=== PATIENT | male | born 1940 | race Hispanic/Latino ===

== ENCOUNTER 2016-07-29 13:14 | Day surgery (SDC) | payer MEDICARE, OTHER, BC ==
[2016-07-28 07:59] VITALS: BMI 22.8
[2016-07-29 14:41] VITALS: RESP 20
[2016-07-29] MEDS ORDERED: Propofol 10 mg/ml Inj (20 ML) ONE (16:19)
[2016-07-29] MEDS ORDERED: Oxycodone/Acetaminophen 5/325 mg Tab PO PRN (16:25)
[2016-07-29] MEDS ORDERED: cefTRIAXone (Rocephin) 1 gm Inj ONE (16:27)
[2016-07-29] MEDS ORDERED: HYDROmorphone 0.5 mg/0.5 ml ISec IVP PRN (16:44)
[2016-07-29] MEDS ORDERED: Lactated Ringer's 1,000 ML IV SCH (16:44)
[2016-07-29] MEDS ORDERED: Gentamicin 80mg/50ml NS 80 MG/50 ML BAG IVPB SCH (16:45)
[2016-07-29] MEDS ORDERED: Gentamicin 80mg/50ml NS 80 MG/50 ML BAG IVPB ONE (16:58)
[2016-07-29] MEDS ORDERED: Gentamicin IV 80mg/50ml NS(PREMIX) IVPB ONE (17:01)
[2016-07-29 17:34] VITALS: BP 127/59; PULSE 72; TEMP 97.9; O2SAT 96
--- NOTE | 2016-08-02 10:43 | OP ---
PROCEDURE DATE: 07/29/2016 PREOPERATIVE DIAGNOSES: Rising PSA, history of prostate cancer. POSTOPERATIVE DIAGNOSES: Rising PSA, history of prostate cancer. PROCEDURE: An ultrasound-guided prostate biopsy. SURGEON: Neville Garcia MD COMPLICATIONS: There were none. SPECIMEN SENT: Prostate cores. FINDINGS: There are no specific areas of concern. In fact, the prostate by rectal exam is soft, ama zingly soft, and smaller than previous. On ultrasound, there are no specific abnormalities. BLOOD LOSS: Less than 10 mL. INDICATIONS: See the history and physical for further details. A very pleasant gentleman with a his tory of prostate cancer with rising PSA, here for the above. We discussed options, risks, benefits, treatment alternatives. I also discussed with the patient various options. See many chart notes as well, including second opinion and other options. DESCRIPTION OF PROCEDURE: After obtaining informed consent, the patient placed on the table, routine monitoring devices placed, timeouts were called to confirm the patient and positioning. The patient was in a decubitus position. Probe inserted via the rectum. We took pictures, transvers e and longitudinal. The prostate is extremely small actually and there are no specific nodules. A rectal exam is performed with the sleeping and then the ultrasound is again very unremarkable. We now began our random biopsies, sextant quadrant, left base, left mid, left apex. It is not quite random. I did just multiple, multiple specimens. Left base, left mid, left apex, right base, right mid, right apex. We did about a total of 12 cores plus in each quadrant. Postbiopsy rectal exam was within normal limits. I do want to mention that the patient had received antibiotic prophylaxis. We will see what the final pathology shows and then we will discuss options regarding this. Neville Garcia MD cc: [id number] TT: 08/02/2016 10:03:57 en 08/02/2016 09:42:00
--- NOTE | 2016-08-18 12:32 | OP ---
PROCEDURE DATE: 07/29/2016 PREOPERATIVE DIAGNOSES: Elevated PSA, rise in PSA, untreated prostate cancer. He is on observation status. POSTOPERATIVE DIAGNOSES: Elevated PSA, rise in PSA, untreated prostate cancer. He is on observation status. PROCEDURE: ____ prostate biopsy. SURGEON: Dr. Garcia. COMPLICATIONS: There were no complications. ____ DESCRIPTION OF PROCEDURE: ____ a very pleasant gentleman who is ____ who has chosen his course of t reatment to be observation and no intervention. To my knowledge ____ . I do want to mention ____ . ____ . Neville Garcia MD cc: [id number] TT: 08/18/2016 10:33:02 rn
--- NOTE | 2016-08-18 12:32 | HP ---
UROLOGY ADMISSION REASON FOR ADMISSION: ____. A very pleasant gentleman I know well ____ here today on an observation protocol because ____, to rul e out ____ disease. The patient had no gross hematuria currently. ____ ultrasound of prostate. ____. MEDICATIONS: Included ____. ____ discharge. I mention now that he has a normal ____. DIAGNOSES: Elevated prostate-specific antigen, ____. ____. No further plans will follow ____, but again my recommendation ____. My recommendation is to be cons idered ____ possible intervention in some form. But so far, the patient ____. ADDENDUM: Subsequently, the patient tolerated ____ well and without complication. Neville Garcia MD cc: [id number] TT: 08/18/2016 10:50:03 jn
== END 2016-07-29 18:10 | disposition home or self-care (01) ==
LOC: SDS 13:14
PROVIDERS: ATTEND Urology
DX: C61 Malignant neoplasm of prostate (principal)
CPT/HCPCS: 55700; 76872; 88305; J0696; J1170; J1580; J2405; J2704; J3010; J7120 ×2

== ENCOUNTER 2017-07-20 06:40 | Day surgery (SDC) | payer MEDICARE, OTHER ==
[2016-07-28 07:59] VITALS: BMI 22.8
[2017-07-20] MEDS ORDERED: Lidocaine 2% Jelly (Uro-Jet) ONE (09:07)
[2017-07-20] MEDS ORDERED: cefTRIAXone (Rocephin) 1 gm Inj ONE (09:07)
[2017-07-20] MEDS ORDERED: Gentamicin 80 mg/2mL Inj. ONE ×2 (09:07→11:54)
[2017-07-20] MEDS ORDERED: Propofol 10 mg/ml Inj (20 ML) ONE (09:21)
[2017-07-20] MEDS ORDERED: Lactated Ringer's 1,000 ML IV SCH (09:45)
[2017-07-20] MEDS ORDERED: Oxycodone/Acetaminophen 5/325 mg Tab PO PRN (09:49)
[2017-07-20 10:48] VITALS: RESP 20; TEMP 98.2
[2017-07-20 12:13] VITALS: BP 161/79; PULSE 68; O2SAT 97
--- NOTE | 2017-09-08 13:43 | PN ---
DATE: 09/08/2017 IMMEDIATE POSTOP NOTE SUBJECTIVE: See the history and physical and operative note. Mr. Irizarry is now status post prostate biopsy. He is doing well. He is in the recovery room. Vital signs are within normal limits. The patient is resting comfortably. DIAGNOSES: Elevated prostate-specific antigen, prostate cancer. The plan is for discharge home on antibiotic prophylaxis. Neville Garcia MD
--- NOTE | 2017-09-09 00:07 | HP ---
UROLOGY ADMISSION HISTORY AND PHYSICAL REASON FOR ADMISSION: Elevated PSA, prostate cancer. HISTORY OF PRESENT ILLNESS: Mr. Irizarry is a very pleasant 77-year-old gentleman who has prostate cancer. He is on active surveillance (this is despite my recommendations that he actually be treated for his prostate cancer. Today, he is here for his surveillance biopsy. PSA is rising. He has no change in urinary symptoms and he has been otherwise stable. PAST MEDICAL AND SURGICAL HISTORY: Patient of Dr. Fitzgerald. No other changes. REVIEW OF SYSTEMS: As listed above. No weight loss, chest pain, or shortness of breath. No constitutional complaints. MEDICATIONS: See the chart. ALLERGIES: REVIEWED. PHYSICAL EXAMINATION: GENERAL: A well-nourished male, in no apparent distress. VITAL SIGNS: Within normal limits. LUNGS: Clear. HEART: S1, S2. ABDOMEN: Soft. Nontender. No flank masses appreciated. GENITOURINARY: Normal phallus without discharge. No testicular masses. RECTAL: A 30-g prostate, soft and smooth. No real specific lesions. No real changes since last year. LABORATORY DATA: See the chart. DIAGNOSIS: Elevated PSA and increasingly rising PSA and prostate cancer that is treated. He is on active surveillance. PLAN: The plan as follows; 1. Do an ultrasound of the prostate. 2. An ultrasound-guided prostate biopsy and then further plans will follow. 3. Antibiotic prophylaxis of course. Further plans will follow. Neville Garcia MD
--- NOTE | 2017-09-09 06:28 | OP ---
PROCEDURE DATE: 07/20/2017 UROLOGY OPERATIVE REPORT PREOPERATIVE DIAGNOSES: Elevated prostate-specific antigen, known prostate cancer. POSTOPERATIVE DIAGNOSES: Elevated prostate-specific antigen, known prostate cancer. The question is whether there is any update . PROCEDURE: Transrectal ultrasound of the prostate and ultrasound-guided prostate biopsy. SURGEON: Neville Garcia MD. SPECIMEN SENT DOWN: Prostate cores antibiotic prophylaxis is used. COMPLICATIONS: None. ESTIMATED BLOOD LOSS: Less than 10 mL. FINDINGS: No specific abnormalities appreciated. INDICATIONS: See history and physical for further details. A very pleasant gentleman on active surveillance. He is here for his annual prostate biopsy. DESCRIPTION OF PROCEDURE: After obtaining informed consent, the patient was placed on the table, routine monitor was placed, time-out was called to confirm the patient, positioning, and antibiotics prophylaxis used. The patient was placed in a decubitus position. Probe inserted via the rectum and ultrasound of the prostate was performed. No specific abnormalities appreciated. No hypoechoic lesions. The post-biopsy rectal exam was within normal limits. We did random biopsies and resection of left base, left mid, left apex, right base, right mid, right apex; a total of 12 cores were sent standard biopsy protocol. Post-biopsy rectal exam was within normal limits. Patient tolerated without complications. Neville Garcia MD
== END 2017-07-20 12:25 | disposition home or self-care (01) ==
LOC: SDS 06:40
PROVIDERS: ATTEND Urology
DX: C61 Malignant neoplasm of prostate (principal)
CPT/HCPCS: 55706; 88305; J0696; J2001; J2704; J3010; J7120 ×2

== ENCOUNTER 2017-12-20 06:09 | Inpatient (IN) | payer MEDICARE, OTHER ==
[2016-07-28 07:59] VITALS: BMI 22.8
[2017-12-20] MEDS ORDERED: Lidocaine PF 2% (5 ml) Inj (For Cardiac Arrhy) ONE (07:04)
[2017-12-20] MEDS ORDERED: Heparin 2,000 ML IV ONE (07:05)
[2017-12-20] MEDS ORDERED: Iodixanol 320 MG/ML 200 ML BOTTLE IV ONE (07:05)
[2017-12-20] MEDS ORDERED: Nitroglycerin 50mg in D5W 50 MG/250 ML BOTTLE IV ONE (07:05)
[2017-12-20] MEDS ORDERED: Iodixanol 320 MG/ML 100 ML BOTTLE IV ONE ×3 (07:05→10:30)
[2017-12-20] MEDS ORDERED: Etomidate 20 mg/10ml Inj IV ONE ×2 (08:40→10:31)
[2017-12-20] MEDS ORDERED: ePHEDrine 50 mg/ml Inj ONE (08:40)
[2017-12-20] MEDS ORDERED: Phenylephrine 10 mg/ml Inj ONE (08:40)
[2017-12-20] MEDS ORDERED: Rocuronium 10 mg/ml (5 ml) ONE (08:41)
[2017-12-20] MEDS ORDERED: Midazolam 2 MG/2 ML VIAL ONE ×3 (08:41→11:09)
[2017-12-20] MEDS ORDERED: Propofol 10 mg/ml Inj (20 ML) ONE (10:49)
[2017-12-20] MEDS ORDERED: Sodium Chloride 0.9% 1,000 ML IV SCH ×2 (11:15→15:15)
[2017-12-20] MEDS ORDERED: Morphine 4 mg/ml ISec ONE (11:30)
[2017-12-20] MEDS ORDERED: Morphine 2 mg/ml ISec IVP STA (11:32)
[2017-12-20] MEDS ORDERED: HYDROmorphone 0.5 mg/0.5 ml ISec ONE (11:52)
[2017-12-20] MEDS ORDERED: HYDROmorphone 0.5 mg/0.5 ml ISec IVP STA (11:52)
--- NOTE | 2017-12-20 15:30 | CP.PCM.CON ---
History of Present Illness - History of Present Illness History of Present Illness: MICU Consult Note 77yo male with PMhx of AAA, HTN, hx smoking, HLD, presented to the MICU after endo-vascular procedure of AAA by IR today. Pt tolerated the procedure well. Currently afebrile, BP stable, SBP 125, comfortable in NAD, doing well. Complaining of mild pain in the groin. PMhx as above PSHx as above Meds as per EMR Fhx NC Social smokes 4-5 cigs/day, occasional etoh, denies drug use Review of Systems - Review of Systems Review of Systems: as per HPI Past Patient History - CARDIAC Hx Pacemaker: No - NEUROLOGICAL Hx Paralysis: No - HEMATOLOGICAL/ONCOLOGICAL Hx Blood Transfusions: No - MUSCULOSKELETAL/RHEUMATOLOGICAL Hx Musculoskeletal Disorders: No - PSYCHIATRIC Hx Emotional Abuse: No Hx Physical Abuse: No Hx Substance Use: No - SURGICAL HISTORY Hx Surgeries: Yes - ANESTHESIA Hx Anesthesia Reactions: No Hx Malignant Hyperthermia: No Meds Allergies/Adverse Reactions: Allergies Allergy/AdvReac Type Severity Reaction Status Date / Time No Known Allergies Allergy Verified 07/28/16 07:59 - Medications Medications: Current Medications Sodium Chloride (Sodium Chloride 0.9%) 1,000 mls @ 60 mls/hr IV .[id number] [facility] Morphine Sulfate (Morphine) 2 mg IVP Q4H PRN PRN Reason: Pain, moderate (4-7) Physical Exam - Constitutional Appears: Non-toxic, No Acute Distress - Head Exam Head Exam: NORMAL INSPECTION - Eye Exam Eye Exam: Normal appearance - ENT Exam ENT Exam: Mucous Membranes Moist - Neck Exam Neck exam: Positive for: Full Rom - Respiratory Exam Respiratory Exam: Clear to Auscultation Bilateral, NORMAL BREATHING PATTERN - Cardiovascular Exam Cardiovascular Exam: REGULAR RHYTHM, +S1, +S2 - GI/Abdominal Exam GI & Abdominal Exam: Normal Bowel Sounds, Soft - Extremities Exam Extremities exam: Positive for: normal inspection - Neurological Exam Neurological exam: Alert, Oriented x3 - Psychiatric Exam Psychiatric exam: Normal Affect - Skin Skin Exam: Normal Color, Warm Results - Vital Signs Recent Vital Signs: Last Vital Signs Temp 98.4 F 12/20/17 14:10 Pulse 75 12/20/17 15:05 Resp 9 L 12/20/17 15:05 BP 125/42 L 12/20/17 15:00 Pulse Ox 94 L 12/20/17 06:45 - Labs Labs: Laboratory Results - last 24 hr 12/20/17 06:35 Blood Type O NEGATIVE Antibody Screen Negative BBK History Checked Patient has bt Assessment & Plan - Assessment and Plan (Free Text) Assessment: 77yo male s/p endo-vascular procedure of AAA, and arterial-occlusive disease by IR AAA s/p endovascular procedure by IR HTN HLD Hx smoking - cont with supp o2 as needed - NO ID issues - IVF hydration - resume diet - BP control - check labs, CBC, CMP, INR - FS control - Pain control - monitor groin site - GI ppx - DVT ppx - monitor in MICU
[2017-12-20] MEDS ORDERED: Albuterol-Ipratrop 3 mg / 0.5 (3 ml) UD IH PRN (15:33)
[2017-12-20] MEDS ORDERED: Pneumococcal 23-Valent Vaccine IM ONE (16:24)
[2017-12-20] MEDS: Morphine 2 mg/ml ISec IVP PRN ×2 (17:04→21:19)
--- NOTE | 2017-12-20 20:26 | VASCULAR ---
PROCEDURE: 1. AAA bifurcated stent graft repair 2. Kissing common iliac artery origin angioplasty 3. Right external iliac artery angioplasty and stent placement HISTORY: 4.5 cm AAA. Severe lifestyle-limiting bilateral claudication PHYSICIAN(S): Seamus Nichols MD. Sea Arreola MD TECHNIQUE: he relative risks and indications for the procedure were explained to the patient and informed written consent obtained. The patient was placed supine on the arteriography table and the abdomen and groins prepped and draped in the usual sterile fashion. Conscious sedation and monitoring were provided by the anesthesia department The common femoral arteries bilaterally were punctured under ultrasound guidance a micropuncture set. Bilateral 7 Yoruba 25 centimeter sheath was placed. The severe occlusive disease at the aortic bifurcation was crossed with angled glide wires and catheters. Support wire for placed the thoracic aorta. The aortic bifurcation and common iliac arteries were dilated with kissing 8 mm balloons. Two perclose devices were pre deployed at the left groin puncture site. A 7 Yoruba 25 cm sheath was placed on the right. The 17 Fr. sheath placed over a support guidewire. The 28-80/16-40 [employer] bifurcated main body was placed on the support wire. The sure pass wire was advanced through the left sheath and snared with a 30 mm vascular snare via the right groin. The main body was advanced in the abdominal aorta. The limbs of the graft were aligned with fluoroscopy and the entire system pulled down to the aortic bifurcation. The 0.014 guidewire was advanced through the sure pass wire and contralateral limb. The main body was deployed at the bifurcation. The delivery system was advanced to the renal arteries. The renal arteries were carefully localized with contrast via a flush catheter from the right groin. The 34-100 aortic extension was deployed just below the renal arteries. The right iliac limb was dilated with a 10 mm balloon expandable stent. On the right, proximal to mid right external iliac artery was dilated with 10 x 80 self expanding stent. Completion angiograms were obtained. There is no evidence of endoleak. The renal arteries are patent. The iliac arteries are patent bilaterally. Hemostasis was obtained bilaterally with the Perclose devices. The patient tolerated the procedure well. IMPRESSION: 1) [employer] bifurcated AAA stent graft repair as described above. 2. Kissing common iliac artery balloon angioplasty. 3. Right external iliac artery angioplasty and stent placement.
[2017-12-20 20:54] LABS: HEMOGLOBIN 10.5 g/dL (14.0-18.0); MEAN CELL VOLUME 102.7 fl (80.0-105.0); MEAN CORPUSCULAR HEMOGLOBIN 35.5 pg (25.0-35.0); MEAN CORPUSCULAR HGB CONC 34.5 g/dl (31.0-37.0); MEAN PLATELET VOLUME 8.6 fl (7.0-11.0); RBC 2.96 10^6/uL (3.5-6.1); RED CELL DISTRIBUTION WIDTH 15.9 % (11.5-14.5); WHITE BLOOD COUNT 6.4 10^3/ul (4.5-11.0)
[2017-12-20 21:11] LABS: BLOOD UREA NITROGEN 11 mg/dL (7-21); CALCIUM 8.2 mg/dL (8.4-10.5); GFR NON-AFRICAN AMERICAN > 60
[2017-12-21] MEDS: Morphine 2 mg/ml ISec IVP PRN ×2 (00:51→05:30)
--- NOTE | 2017-12-21 01:55 | HP ---
HISTORY OF PRESENT ILLNESS: I was called through the Intensive Care Unit to admit him on my service. He just had a AAA repair with Dr. Seamus Nichols. He is now in the Intensive Care Unit. He is very upset about the Lin catheter. I will see if I get that removed. He is a 77-year-old white male who was sent to Dr. Seamus Nichols with increase in size of the AAA noted on testing by his primary care doctor, Dr. Uribe. PAST MEDICAL HISTORY: He has a past medical history of high cholesterol, hypertension, history of prostate cancer, AAA was 2 years ago was 4.9. FAMILY HISTORY: Also with cancer. Grandmother also had cardiovascular issues. PAST SURGICAL HISTORY: He had bilateral cataracts lens implant, EGD, colonoscopy, multiple prostate biopsies. SOCIAL HISTORY: He smokes five cigarettes a day. He is strongly advised to quit. He is still active smoking. He still drinks alcohol. No drugs. REVIEW OF SYSTEMS: He wears glasses. She had cataracts. He is awake and alert x3. He is lying in bed. He has a lot of backache too in his life, back pain that he puts up with no depression or anxiety. No suicidal thoughts or anything like that. No acute vision or hearing changes, but old. No sore throat. No chest pain or shortness of breath. No palpitations or cough. No abdominal pain. No nausea, vomiting, constipation, or diarrhea. No leg pains. She is very cranky at this time. PHYSICAL EXAMINATION: VITAL SIGNS: He has a 98.5 temp, 84 pulse, 18 respiratory rate, 94% O2 sat on room air, 142/50 blood pressure. HEENT: His head is atraumatic, normocephalic. HEART: Regular rate. LUNGS: Decreased breath sounds but clear. ABDOMEN: Soft. Positive bowel sounds. EXTREMITIES: No edema. SKIN: For I could tell is intact with no apparent rashes or ulcers. PSYCHIATRIC: He is alert and oriented x3, just mean and cranky at this time, did not want to be here. IMPRESSION AND PLAN: We are trying to get the Lin catheter removed and make him more comfortable. He is on Dilaudid for pain, albuterol, Ecotrin, Lipitor, morphine for pain also, Prozac, IV fluids. He has oxygen, heart-healthy diet and we will watch him overnight. He is here for AAA repair by Dr. Seamus Nichols. Heri Bell DO
[2017-12-21 06:04] VITALS: O2SAT 94
[2017-12-21 07:31] LABS: BASO # 0.03 K/mm3 (0.0-2.0); BASO % 0.5 % (0.0-3.0); EOS # 0.2 (0.0-0.7); EOS % 3.8 % (1.5-5.0); GRAN # 4.38 (1.4-6.5); GRAN % 71.4 % (50.0-68.0); HEMOGLOBIN 10.7 g/dL (14.0-18.0); LYMPH # 0.7 (1.2-3.4); LYMPH % 12.1 % (22.0-35.0); MEAN CELL VOLUME 103.3 fl (80.0-105.0); MEAN CORPUSCULAR HGB CONC 33.9 g/dl (31.0-37.0); MEAN PLATELET VOLUME 8.7 fl (7.0-11.0); MONO # 0.8 (0.1-0.6); MONO % 12.2 % (1.0-6.0); RBC 3.06 10^6/uL (3.5-6.1); RED CELL DISTRIBUTION WIDTH 16.2 % (11.5-14.5); WHITE BLOOD COUNT 6.1 10^3/ul (4.5-11.0)
[2017-12-21 07:41] LABS: INR 1.13; PARTIAL THROMBOPLASTIN TIME 27.1 Seconds (25.1-36.5)
[2017-12-21 08:03] LABS: ALBUMIN 3.1 g/dL (3.0-4.8); ALT/SGPT 24 U/L (7-56); AST/SGOT 33 U/L (17-59); BLOOD UREA NITROGEN 9 mg/dL (7-21); CALCIUM 8.5 mg/dL (8.4-10.5); GFR NON-AFRICAN AMERICAN > 60
[2017-12-21 08:48] VITALS: BP 141/65; PULSE 78; RESP 19; TEMP 97.8
[2017-12-21] MEDS ORDERED: Magnesium Oxide 400 mg Tab UD PO ONE (09:04)
[2017-12-21] MEDS ORDERED: Magnesium Sulfate 2 gm/50 ml 2 GM/50 ML BAG IVPB ONE (09:20)
--- NOTE | 2017-12-21 09:29 | DS ---
HISTORY OF PRESENT ILLNESS: He is status post abdominal aortic aneurysm repair with Dr. Seamus Nichols yesterday. He is resting comfortably in bed, slept fairly well. He wants to leave. He is feeling well. He is on Benadryl, Dilaudid as needed, DuoNebs, Ecotrin, Lipitor, morphine as needed, Prilosec and IV fluids. PHYSICAL EXAMINATION: VITAL SIGNS: 97.8 temp, 78 pulse, 137/74 blood pressure and 94% O2 sat on room air. HEENT: His head is atraumatic, normocephalic. HEART: Regular rate. LUNGS: Decreased breath sounds, but clear. ABDOMEN: Soft, nontender. Positive bowel sounds. EXTREMITIES: No edema. LABORATORY DATA: He has a 6.1 white count, 10.7 hemoglobin, 31.6 hematocrit with 205 platelets. He has a 136 sodium, potassium is 4, BUN 9, creatinine 0.8, GFR is greater than 60, sugar is 86, calcium is 8.5, magnesium is 1.6, total bili is 0.4, AST is 33, ALT is 24, alk phos is 70, total protein is 6.2. ASSESSMENT AND PLAN: I will give him a p.o. one-time dose of magnesium. He is also going to be discharged after physical therapy says it is okay and Dr. Seamus Nichols says it is okay, but he should be able to be discharged today. He was here for abdominal aortic aneurysm repair. Heri Bell DO
[2017-12-21] MEDS ORDERED: OMEPRAZOLE MAGNESIUM 40 MG PO SCH (10:00)
--- NOTE | 2017-12-21 11:48 | CP.CCUPN ---
<Supriya Ruiz - Last Filed: 12/21/17 12:49> CCU Subjective - Physician Review Subjective (Free Text): 12/21/17 12:31 Patient seen and examined at bedside this AM. No acute events overnight. Patient states that he did not eat anything last night, would like Ensure this morning. Denies nausea, vomiting, epigastric/abdominal pain, leg swelling, urinary symptoms, paresthesias/numbness. CCU Objective - Vital Signs / Intake & Output Vital Signs (Last 4 hours): Vital Signs Temp Pulse Resp BP Pulse Ox 12/21/17 08:48 97.8 F 12/21/17 08:40 78 19 94 L 12/21/17 08:30 80 24 93 L 12/21/17 08:20 81 22 93 L 12/21/17 08:10 84 94 L 12/21/17 08:00 90 23 141/65 94 L 12/21/17 07:50 97 H 22 94 L Intake and Output (Last 8hrs): Intake & Output 12/20/17 12/21/17 12/21/17 22:59 06:59 14:59 Intake Total 1100 720 Output Total 1950 1600 Balance -850 -880 Weight 150 lb Intake: IV 900 720 0.9 720 Right Forearm 900 Oral 200 Output: Urine 1950 1600 Urethral (Lin) 1950 Urine, Voided 1600 Other: Voiding Method Indwelling Catheter # Bowel Movements 0 - Physical Exam Head: Positive for: Atraumatic, Normocephalic. Negative for: Tenderness, Abrasion, Laceration Pupils: Positive for: PERRL. Negative for: Non-Reactive, Pinpoint Extroacular Muscles: Positive for: EOMI. Negative for: Gaze Palsy Conjunctiva: Positive for: Normal. Negative for: Injected, Icteric Mouth: Positive for: Moist Mucous Membranes Neck: Positive for: Normal Range of Motion Respiratory/Chest: Positive for: Clear to Auscultation, Good Air Exchange. Negative for: Respiratory Distress, Accessory Muscle Use, Wheezes, Retracting, Rhonchi Cardiovascular: Positive for: Regular Rate and Rhythm, Normal S1, S2. Negative for: Murmurs Abdomen: Positive for: Normal Bowel Sounds. Negative for: Tenderness, Distention, Peritoneal Signs, Rebound, Guarding, McBurney's Point Tender, Mass/ Organomegaly Upper Extremity: Positive for: Normal Inspection. Negative for: Cyanosis, Edema Lower Extremity: Positive for: Normal Inspection, NORMAL PULSES, Normal ROM, Neurovascularly Intact, Capillary Refill < 2 s, Other (right and left sided groin dressings c/d/i, no excessive bleeding/hematoma noted). Negative for: Edema, CALF TENDERNESS, Cyanosis, Sweetie's Sign, Tenderness, Swelling, Erythema Neurological: Positive for: GCS=15, CN II-XII Intact, Speech Normal Skin: Positive for: Warm, Dry, Normal Color Psychiatric: Positive for: Alert, Oriented x 3 - Medications Active Medications: Active Medications Generic Name Dose Route Start Last Admin Trade Name Freq PRN Reason Stop Dose Admin Albuterol/Ipratropium 3 ml 12/20/17 15:33 Duoneb 3 Mg/0.5 Mg (3 Ml) Ud IH [id number] PRN Shortness of Breath Aspirin 81 mg 12/21/17 08:00 12/21/17 09:39 Ecotrin PO 81 mg DAILY KAITLYN Administration Atorvastatin Calcium 20 mg 12/21/17 10:00 12/21/17 09:38 Lipitor PO 20 mg DAILY KAITLYN Administration Diphenhydramine HCl 25 mg 12/20/17 22:12 12/20/17 22:24 Benadryl PO 25 mg HS PRN Administration Insomnia Sodium Chloride 1,000 mls @ 60 mls/hr 12/20/17 15:15 12/20/17 16:15 Sodium Chloride 0.9% IV 60 mls/hr .[id number] KAITLYN Administration Morphine Sulfate 2 mg 12/20/17 15:09 12/21/17 05:30 Morphine IVP 2 mg Q4H PRN Administration Pain, moderate (4-7) Non-Formulary Medication 40 mg 12/21/17 10:00 Omeprazole Magnesium [Prilosec Otc] PO DAILY KAITLYN - Patient Studies Lab Studies: Lab Studies 12/21/17 12/21/17 12/21/17 Range/Units 06:45 06:45 06:45 WBC 6.1 (4.5-11.0) 10^3/ul RBC 3.06 L (3.5-6.1) 10^6/uL Hgb 10.7 L (14.0-18.0) g/dL Hct 31.6 L (42.0-52.0) % MCV 103.3 (80.0-105.0) fl MCH 35.0 (25.0-35.0) pg MCHC 33.9 (31.0-37.0) g/dl RDW 16.2 H (11.5-14.5) % Plt Count 205 (120.0-450.0) 10^3/uL MPV 8.7 (7.0-11.0) fl Gran % 71.4 H (50.0-68.0) % Lymph % (Auto) 12.1 L (22.0-35.0) % Cotton % (Auto) 12.2 H (1.0-6.0) % Eos % (Auto) 3.8 (1.5-5.0) % Baso % (Auto) 0.5 (0.0-3.0) % Gran # 4.38 (1.4-6.5) Lymph # (Auto) 0.7 L (1.2-3.4) Cotton # (Auto) 0.8 H (0.1-0.6) Eos # (Auto) 0.2 (0.0-0.7) Baso # (Auto) 0.03 (0.0-2.0) K/mm3 PT 13.0 H (9.4-12.5) SECONDS INR 1.13 APTT 27.1 (25.1-36.5) Seconds Sodium 136 (132-148) mmol/L Potassium 4.0 (3.6-5.0) mmol/L Chloride 105 (98-107) mmol/L Carbon Dioxide 24 (21-33) mmol/L Anion Gap 11 (10-20) BUN 9 (7-21) mg/dL Creatinine 0.8 (0.8-1.5) mg/dl Est GFR ( Amer) > 60 Est GFR (Non-Af Amer) > 60 Random Glucose 86 (70-110) mg/dL Calcium 8.5 (8.4-10.5) mg/dL Phosphorus 3.0 (2.5-4.5) mg/dL Magnesium 1.6 L (1.7-2.2) mg/dL Total Bilirubin 0.4 (0.2-1.3) mg/dL AST 33 (17-59) U/L ALT 24 (7-56) U/L Alkaline Phosphatase 70 (38-126) U/L Total Protein 6.2 (5.8-8.3) g/dL Albumin 3.1 (3.0-4.8) g/dL Globulin 3.1 gm/dL Albumin/Globulin Ratio 1.0 L (1.1-1.8) 12/20/17 12/20/17 Range/Units 20:40 20:40 WBC 6.4 D (4.5-11.0) 10^3/ul RBC 2.96 L (3.5-6.1) 10^6/uL Hgb 10.5 L D (14.0-18.0) g/dL Hct 30.4 L (42.0-52.0) % MCV 102.7 (80.0-105.0) fl MCH 35.5 H (25.0-35.0) pg MCHC 34.5 (31.0-37.0) g/dl RDW 15.9 H (11.5-14.5) % Plt Count 190 (120.0-450.0) 10^3/uL MPV 8.6 (7.0-11.0) fl Gran % (50.0-68.0) % Lymph % (Auto) (22.0-35.0) % Cotton % (Auto) (1.0-6.0) % Eos % (Auto) (1.5-5.0) % Baso % (Auto) (0.0-3.0) % Gran # (1.4-6.5) Lymph # (Auto) (1.2-3.4) Cotton # (Auto) (0.1-0.6) Eos # (Auto) (0.0-0.7) Baso # (Auto) (0.0-2.0) K/mm3 PT (9.4-12.5) SECONDS INR APTT (25.1-36.5) Seconds Sodium 134 (132-148) mmol/L Potassium 3.9 (3.6-5.0) mmol/L Chloride 107 (98-107) mmol/L Carbon Dioxide 22 (21-33) mmol/L Anion Gap 8 L (10-20) BUN 11 (7-21) mg/dL Creatinine 0.7 L (0.8-1.5) mg/dl Est GFR ( Amer) > 60 Est GFR (Non-Af Amer) > 60 Random Glucose 90 (70-110) mg/dL Calcium 8.2 L (8.4-10.5) mg/dL Phosphorus (2.5-4.5) mg/dL Magnesium (1.7-2.2) mg/dL Total Bilirubin (0.2-1.3) mg/dL AST (17-59) U/L ALT (7-56) U/L Alkaline Phosphatase (38-126) U/L Total Protein (5.8-8.3) g/dL Albumin (3.0-4.8) g/dL Globulin gm/dL Albumin/Globulin Ratio (1.1-1.8) Laboratory Results - last 24 hr 12/20/17 12/20/17 12/21/17 20:40 20:40 06:45 WBC 6.4 D 6.1 RBC 2.96 L 3.06 L Hgb 10.5 L D 10.7 L Hct 30.4 L 31.6 L MCV 102.7 103.3 MCH 35.5 H 35.0 MCHC 34.5 33.9 RDW 15.9 H 16.2 H Plt Count 190 205 MPV 8.6 8.7 Gran % 71.4 H Lymph % (Auto) 12.1 L Cotton % (Auto) 12.2 H Eos % (Auto) 3.8 Baso % (Auto) 0.5 Gran # 4.38 Lymph # (Auto) 0.7 L Cotton # (Auto) 0.8 H Eos # (Auto) 0.2 Baso # (Auto) 0.03 PT INR APTT Sodium 134 Potassium 3.9 Chloride 107 Carbon Dioxide 22 Anion Gap 8 L BUN 11 Creatinine 0.7 L Est GFR ( Amer) > 60 Est GFR (Non-Af Amer) > 60 Random Glucose 90 Calcium 8.2 L Phosphorus Magnesium Total Bilirubin AST ALT Alkaline Phosphatase Total Protein Albumin Globulin Albumin/Globulin Ratio 12/21/17 12/21/17 06:45 06:45 WBC RBC Hgb Hct MCV MCH MCHC RDW Plt Count MPV Gran % Lymph % (Auto) Cotton % (Auto) Eos % (Auto) Baso % (Auto) Gran # Lymph # (Auto) Cotton # (Auto) Eos # (Auto) Baso # (Auto) PT 13.0 H INR 1.13 APTT 27.1 Sodium 136 Potassium 4.0 Chloride 105 Carbon Dioxide 24 Anion Gap 11 BUN 9 Creatinine 0.8 Est GFR ( Amer) > 60 Est GFR (Non-Af Amer) > 60 Random Glucose 86 Calcium 8.5 Phosphorus 3.0 Magnesium 1.6 L Total Bilirubin 0.4 AST 33 ALT 24 Alkaline Phosphatase 70 Total Protein 6.2 Albumin 3.1 Globulin 3.1 Albumin/Globulin Ratio 1.0 L Review of Systems - Review of Systems All systems: reviewed and no additional remarkable complaints except Review of Systems: as per HPI Critical Care Progress Note - Nutrition Nutrition: Nutrition Category Date Time Status Heart Healthy Diet [DIET] Diets 12/20/17 Dinner Active Assessment/Plan - Assessment and Plan (Free Text) Assessment: 77 year old male with PMH HTN, GERD, smoker, admitted to ICU s/p endo-vascular procedure of AAA, and 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 No changes in mental status. Continue to monitor. Respiratory: On RA. Maintain sats>96%. Cardio: s/p AAA repair. On ASA, statin. Morphine prn pain. Dr Nichols on board. Hx of HTN. May resume home meds Norvasc and Cozaar if BP elevated. BP currently 142/76. GI: home prilosec. Heart healthy diet, ensure supplements. Patient tolerated morning breakfast well. Renal: BUN/Cr 9/0.8. Magnesium low 1.6, repleted. will maintain euvolemia and maintain lytes. Endo: Maintain euglycemia. PPX: prilosec, SCDs Case seen and discussed with Dr Kathryn Reyes. <Kathryn Reyes - Last Filed: 12/21/17 16:01> CCU Objective - Vital Signs / Intake & Output Intake and Output (Last 8hrs): Intake & Output 12/21/17 12/21/17 12/21/17 06:59 14:59 22:59 Intake Total 720 Output Total 1600 Balance -880 Intake: IV 720 0.9 720 Output: Urine 1600 Urine, Voided 1600 - Patient Studies Lab Studies: Lab Studies 12/21/17 12/21/17 12/21/17 Range/Units 06:45 06:45 06:45 WBC 6.1 (4.5-11.0) 10^3/ul RBC 3.06 L (3.5-6.1) 10^6/uL Hgb 10.7 L (14.0-18.0) g/dL Hct 31.6 L (42.0-52.0) % MCV 103.3 (80.0-105.0) fl MCH 35.0 (25.0-35.0) pg MCHC 33.9 (31.0-37.0) g/dl RDW 16.2 H (11.5-14.5) % Plt Count 205 (120.0-450.0) 10^3/uL MPV 8.7 (7.0-11.0) fl Gran % 71.4 H (50.0-68.0) % Lymph % (Auto) 12.1 L (22.0-35.0) % Cotton % (Auto) 12.2 H (1.0-6.0) % Eos % (Auto) 3.8 (1.5-5.0) % Baso % (Auto) 0.5 (0.0-3.0) % Gran # 4.38 (1.4-6.5) Lymph # (Auto) 0.7 L (1.2-3.4) Cotton # (Auto) 0.8 H (0.1-0.6) Eos # (Auto) 0.2 (0.0-0.7) Baso # (Auto) 0.03 (0.0-2.0) K/mm3 PT 13.0 H (9.4-12.5) SECONDS INR 1.13 APTT 27.1 (25.1-36.5) Seconds Sodium 136 (132-148) mmol/L Potassium 4.0 (3.6-5.0) mmol/L Chloride 105 (98-107) mmol/L Carbon Dioxide 24 (21-33) mmol/L Anion Gap 11 (10-20) BUN 9 (7-21) mg/dL Creatinine 0.8 (0.8-1.5) mg/dl Est GFR ( Amer) > 60 Est GFR (Non-Af Amer) > 60 Random Glucose 86 (70-110) mg/dL Calcium 8.5 (8.4-10.5) mg/dL Phosphorus 3.0 (2.5-4.5) mg/dL Magnesium 1.6 L (1.7-2.2) mg/dL Total Bilirubin 0.4 (0.2-1.3) mg/dL AST 33 (17-59) U/L ALT 24 (7-56) U/L Alkaline Phosphatase 70 (38-126) U/L Total Protein 6.2 (5.8-8.3) g/dL Albumin 3.1 (3.0-4.8) g/dL Globulin 3.1 gm/dL Albumin/Globulin Ratio 1.0 L (1.1-1.8) 12/20/17 12/20/17 Range/Units 20:40 20:40 WBC 6.4 D (4.5-11.0) 10^3/ul RBC 2.96 L (3.5-6.1) 10^6/uL Hgb 10.5 L D (14.0-18.0) g/dL Hct 30.4 L (42.0-52.0) % MCV 102.7 (80.0-105.0) fl MCH 35.5 H (25.0-35.0) pg MCHC 34.5 (31.0-37.0) g/dl RDW 15.9 H (11.5-14.5) % Plt Count 190 (120.0-450.0) 10^3/uL MPV 8.6 (7.0-11.0) fl Gran % (50.0-68.0) % Lymph % (Auto) (22.0-35.0) % Cotton % (Auto) (1.0-6.0) % Eos % (Auto) (1.5-5.0) % Baso % (Auto) (0.0-3.0) % Gran # (1.4-6.5) Lymph # (Auto) (1.2-3.4) Cotton # (Auto) (0.1-0.6) Eos # (Auto) (0.0-0.7) Baso # (Auto) (0.0-2.0) K/mm3 PT (9.4-12.5) SECONDS INR APTT (25.1-36.5) Seconds Sodium 134 (132-148) mmol/L Potassium 3.9 (3.6-5.0) mmol/L Chloride 107 (98-107) mmol/L Carbon Dioxide 22 (21-33) mmol/L Anion Gap 8 L (10-20) BUN 11 (7-21) mg/dL Creatinine 0.7 L (0.8-1.5) mg/dl Est GFR ( Amer) > 60 Est GFR (Non-Af Amer) > 60 Random Glucose 90 (70-110) mg/dL Calcium 8.2 L (8.4-10.5) mg/dL Phosphorus (2.5-4.5) mg/dL Magnesium (1.7-2.2) mg/dL Total Bilirubin (0.2-1.3) mg/dL AST (17-59) U/L ALT (7-56) U/L Alkaline Phosphatase (38-126) U/L Total Protein (5.8-8.3) g/dL Albumin (3.0-4.8) g/dL Globulin gm/dL Albumin/Globulin Ratio (1.1-1.8) Laboratory Results - last 24 hr 12/20/17 12/20/17 12/21/17 20:40 20:40 06:45 WBC 6.4 D 6.1 RBC 2.96 L 3.06 L Hgb 10.5 L D 10.7 L Hct 30.4 L 31.6 L MCV 102.7 103.3 MCH 35.5 H 35.0 MCHC 34.5 33.9 RDW 15.9 H 16.2 H Plt Count 190 205 MPV 8.6 8.7 Gran % 71.4 H Lymph % (Auto) 12.1 L Cotton % (Auto) 12.2 H Eos % (Auto) 3.8 Baso % (Auto) 0.5 Gran # 4.38 Lymph # (Auto) 0.7 L Cotton # (Auto) 0.8 H Eos # (Auto) 0.2 Baso # (Auto) 0.03 PT INR APTT Sodium 134 Potassium 3.9 Chloride 107 Carbon Dioxide 22 Anion Gap 8 L BUN 11 Creatinine 0.7 L Est GFR ( Amer) > 60 Est GFR (Non-Af Amer) > 60 Random Glucose 90 Calcium 8.2 L Phosphorus Magnesium Total Bilirubin AST ALT Alkaline Phosphatase Total Protein Albumin Globulin Albumin/Globulin Ratio 12/21/17 12/21/17 06:45 06:45 WBC RBC Hgb Hct MCV MCH MCHC RDW Plt Count MPV Gran % Lymph % (Auto) Cotton % (Auto) Eos % (Auto) Baso % (Auto) Gran # Lymph # (Auto) Cotton # (Auto) Eos # (Auto) Baso # (Auto) PT 13.0 H INR 1.13 APTT 27.1 Sodium 136 Potassium 4.0 Chloride 105 Carbon Dioxide 24 Anion Gap 11 BUN 9 Creatinine 0.8 Est GFR ( Amer) > 60 Est GFR (Non-Af Amer) > 60 Random Glucose 86 Calcium 8.5 Phosphorus 3.0 Magnesium 1.6 L Total Bilirubin 0.4 AST 33 ALT 24 Alkaline Phosphatase 70 Total Protein 6.2 Albumin 3.1 Globulin 3.1 Albumin/Globulin Ratio 1.0 L Critical Care Progress Note - Nutrition Nutrition: Nutrition Category Date Time Status Heart Healthy Diet [DIET] Diets 12/20/17 Dinner Active Addendum Addendum: 12/21/17 16:00 ICU Attending Addendum: Patient seen and examined. Case reviewed on round with housestaff. Agree with resident note above with the following additions/exceptions: 77 year old male with PMH HTN, GERD, smoker, admitted to ICU s/p endo-vascular procedure of AAA, and arterial-occlusive disease by IR hemodynamically stable no longer need ICU level care d/c per primary team Kathryn Reyes MD Integration Technician
[2017-12-21] MEDS ORDERED: Morphine 5 MG/ML SYRINGE IVP STA (12:56)
== END 2017-12-21 12:55 | disposition home or self-care (01) | DRG 269 ==
LOC: SDAVASINP 06:09 → EDSTATUS 08:00 → ICU 12:21
PROVIDERS: ADMIT Radiology Vascular & Interventional Radiology; ATTEND Internal Medicine
PROC: 04V03E6 (ICD-10-PCS; principal; 2017-12-20)
PROC: [UNRECOGNIZED PROCEDURE] (2017-12-20)
DX: I71.4 Abdominal aortic aneurysm, without rupture (principal); I70.201 Unspecified atherosclerosis of native arteries of extremities, right leg; E78.00 Pure hypercholesterolemia, unspecified; E78.5 Hyperlipidemia, unspecified; F17.210 Nicotine dependence, cigarettes, uncomplicated; I10 Essential (primary) hypertension; Z85.46 Personal history of malignant neoplasm of prostate; Z86.79 Personal history of other diseases of the circulatory system; K21.9 Gastro-esophageal reflux disease without esophagitis

== ENCOUNTER 2018-05-04 16:26 | Inpatient (IN) | payer MEDICARE, BC ==
[2018-05-04] MEDS ORDERED: Azithromycin 500MG/NS 250ml 500 MG/250 ML BAG IVPB STA (17:17)
[2018-05-04] MEDS ORDERED: Sodium Chloride 0.9% 1,000 ML IV STA (17:17)
[2018-05-04] MEDS ORDERED: cefTRIAXone 1 gm 1 GM/100 ML BAG IVPB STA (17:17)
[2018-05-04 17:18] LABS: EOS % 0.1 % (1.5-5.0); LYMPH # 0.3 (1.2-3.4); LYMPH % 3.8 % (22.0-35.0); MEAN CORPUSCULAR HEMOGLOBIN 34.9 pg (25.0-35.0); MEAN CORPUSCULAR HGB CONC 34.9 g/dl (31.0-37.0); MEAN PLATELET VOLUME 9.1 fl (7.0-11.0); MONO # 0.4 (0.1-0.6); MONO % 5.6 % (1.0-6.0); PLATELET COUNT 195 10^3/uL (120.0-450.0); RBC 3.73 10^6/uL (3.5-6.1); RED CELL DISTRIBUTION WIDTH 17.6 % (11.5-14.5); WHITE BLOOD COUNT 7.2 10^3/uL (4.5-11.0)
--- NOTE | 2018-05-04 17:19 | ED PDOC ---
Arrival/HPI - General Chief Complaint: Shortness Of Breath Time Seen by Provider: 05/04/18 16:40 Historian: Patient - History of Present Illness Narrative History of Present Illness (Text): 05/04/18 16:49 Patient is a 78 year old male, with past medical history of hypertension, PVD, COPD, and prostate CA, presents to the ED for evaluation of dizziness/lightheadedness associated with shortness of breath since 2 days. Patient additionally informs subjective fever at home but denies taking any medication. Patient denies any other associated somatic complaints. Reports cough. Patient denies any headache,chest pain, abdominal pain, nausea, vomiting, diarrhea, back pain, neck pain, or any other complaints. 05/04/18 19:11 Time/Duration: < week Symptom Onset: Gradual Symptom Course: Unchanged Activities at Onset: Light Context: Home Past Medical History - Provider Review Nursing Documentation Reviewed: Yes - Cardiac Hx Cardiac Disorders: Yes Hx Hypertension: Yes Hx Peripheral Vascular Disease: Yes - Pulmonary Hx Respiratory Disorders: No Hx Chronic Obstructive Pulmonary Disease (COPD): Yes - Neurological Hx Neurological Disorder: No - HEENT Hx HEENT Disorder: Yes (reading glasses) Hx Cataracts: Yes (b/l sx b/l lens implant) - Renal Hx Renal Disorder: No - Endocrine/Metabolic Hx Endocrine Disorders: No - Hematological/Oncological Hx Blood Disorders: Yes Hx Cancer: Yes (prostate) Hx Chemotherapy: No Other/Comment: elevated psa no treatment other than annual prostate bx laast one done 07/20/17, dx around 6 yrs ago, pt denies any hx of lung ca - Integumentary Hx Dermatological Disorder: Yes Other/Comment: b/l groin dressings dry and intact - Musculoskeletal/Rheumatological Hx Falls: No - Gastrointestinal Hx Gastrointestinal Disorders: Yes (left inguinal hernia) - Genitourinary/Gynecological Hx Prostate Problems: Yes (elevated psa) - Psychiatric Hx Emotional Abuse: No Hx Physical Abuse: No Hx Substance Use: No - Surgical History Hx Abdominal Aortic Aneurysm Repair: Yes Other/Comment: AAA stent graft insertion 12/20/17, multiple prostate bx's - Anesthesia Hx Anesthesia Reactions: No Hx Malignant Hyperthermia: No - Suicidal Assessment Feels Threatened In Home Enviroment: No Family/Social History - Physician Review Nursing Documentation Reviewed: Yes Family/Social History: No Known Family HX Smoking Status: Former Smoker Hx Alcohol Use: Yes (social) Frequency of alcohol use: Daily Hx Substance Use: No Allergies/Home Meds Allergies/Adverse Reactions: Allergies No Known Allergies Allergy (Verified 07/28/16 07:59) Home Medications: Home Meds Medication Instructions Recorded Confirmed Losartan [Cozaar] 50 mg PO DAILY 07/28/16 12/20/17 Simvastatin [Zocor] 40 mg PO DAILY 07/28/16 12/20/17 amLODIPine [Norvasc] 5 mg PO DAILY 07/28/16 12/20/17 Aspirin [Ecotrin] 81 mg PO DAILY 07/14/17 12/20/17 Fluticasone Furoate [Arnuity 1 inh IH DAILY 07/14/17 12/20/17 Ellipta] Omeprazole Magnesium [Prilosec Otc] 40 mg PO DAILY 07/14/17 12/20/17 Primidone [Mysoline] 2 tab PO DAILY 07/14/17 12/20/17 Umeclidinium Brm/Vilanterol Tr 1 inh IH DAILY 07/14/17 12/20/17 [Anoro Ellipta 62.5-25 Mcg INH] Review of Systems - Review of Systems Constitutional: Fevers Respiratory: SOB, Cough. absent: Sputum Cardiovascular: absent: Chest Pain Gastrointestinal: absent: Abdominal Pain, Diarrhea, Nausea, Vomiting Genitourinary Male: absent: Dysuria, Urinary Output Changes Musculoskeletal: absent: Back Pain, Neck Pain Skin: absent: Rash Neurological: Dizziness. absent: Headache Endocrine: absent: Polyuria Psychiatric: absent: Anxiety Physical Exam Vital Signs Reviewed: Yes Vital Signs Temp Pulse Resp BP Pulse Ox 05/04/18 16:37 100.8 F H 110 H 18 138/71 95 Temperature: Febrile Blood Pressure: Normal Pulse: Tachycardic Respiratory Rate: Normal Appearance: Positive for: Well-Appearing, Non-Toxic, Comfortable Pain Distress: None Mental Status: Positive for: Alert and Oriented X 3 - Systems Exam Head: Present: Atraumatic, Normocephalic Pupils: Present: PERRL Extroacular Muscles: Present: EOMI Conjunctiva: Present: Normal Mouth: Present: Moist Mucous Membranes Respiratory/Chest: Present: Good Air Exchange, Decreased Breath Sounds. No: Respiratory Distress, Accessory Muscle Use Cardiovascular: Present: Irregular Rhythm (Irregularly irregular rhythm), Tachycardic. No: Murmurs Abdomen: No: Tenderness, Distention, Peritoneal Signs Back: Present: Normal Inspection Upper Extremity: Present: Normal Inspection. No: Cyanosis, Edema Lower Extremity: Present: Edema (non-pitting edema bilaterally) Neurological: Present: GCS=15, CN II-XII Intact, Speech Normal Skin: Present: Warm, Dry, Normal Color. No: Rashes Psychiatric: Present: Alert, Oriented x 3, Normal Insight, Normal Concentration Medical Decision Making ED Course and Treatment: 05/04/18 16:43 Impression: 78 year old male presents to the ED for evaluation of lightheadedness/dizziness, shortness of breath and subjective fever. Plan: -- VBG -- EKG -- Labs -- Chest X-ray -- Aspirin -- Blood Culture -- Influenza -- Reassess and disposition Prior Visits: Notes and results from previous visits were reviewed. Progress Notes: 05/04/18 18:06 Chest X-Ray as reviewed by radiologist shows that: FINDINGS: LUNGS: Peripheral infiltrate affecting both right upper and right lower lobes. Increased interstitial markings peripherally in the left lung may be attributable to portable technique and poor inspiratory effort. PLEURA: No significant pleural effusion identified, no pneumothorax apparent. CARDIOVASCULAR: No atherosclerotic calcification present Normal. OSSEOUS STRUCTURES: No significant abnormalities. VISUALIZED UPPER ABDOMEN: Normal. OTHER FINDINGS: None. IMPRESSION: Extensive right upper, right lower lobe infiltrates. These represent new findings. Infiltrate/atelectasis left lower lobe accentuated by technique. 05/04/18 18:11 After fluids and tylenol repeat ekg shows NSR at 95bpm. Trop 0.02. Flu negative. 05/04/18 19:14 - RAD Interpretation Radiology Orders: 05/04/18 16:49 CHEST PORTABLE [RAD] Stat Embossing Press Operator Apprentice: Radiologist - Medication Orders Current Medication Orders: Discontinued Medications Aspirin (Aspirin Chewable) 324 mg PO STAT STA Stop: 05/04/18 16:50 Last Admin: 05/04/18 17:07 Dose: 324 mg - Scribe Statement The provider has reviewed the documentation as recorded by the Angel Linares. All medical record entries made by the Tessaibjose manuel were at my direction and personally dictated by me. I have reviewed the chart and agree that the record accurately reflects my personal performance of the history, physical exam, medical decision making, and the department course for this patient. I have also personally directed, reviewed, and agree with the discharge instructions and disposition. Disposition/Present on Arrival - Present on Arrival Any Indicators Present on Arrival: No History of DVT/PE: No History of Uncontrolled Diabetes: No Urinary Catheter: Yes (inserted in clinical genetics laboratory chief) History of Decub. Ulcer: No History Surgical Site Infection Following: None - Disposition Have Diagnosis and Disposition been Completed?: Yes Diagnosis: Pneumonia Disposition: HOSPITALIZED Disposition Time: 17:23 Patient Plan: Admission, Observation Condition: FAIR
[2018-05-04 17:33] LABS: ALBUMIN 3.7 g/dL (3.0-4.8); ALT/SGPT 34 U/L (7-56); AST/SGOT 45 U/L (17-59); BLOOD UREA NITROGEN 23 mg/dL (7-21); CALCIUM 9.2 mg/dL (8.4-10.5); GFR NON-AFRICAN AMERICAN > 60; INR 1.21; PARTIAL THROMBOPLASTIN TIME 32.1 Seconds (26.9-38.3); PROTHROMBIN TIME 13.4 SECONDS (9.4-12.5)
[2018-05-04 17:39] LABS: TROPONIN I 0.02 ng/mL
[2018-05-04 17:40] LABS: B-TYPE NATRIURETIC PEPTIDE 701 pg/mL (0-450)
[2018-05-04 17:42] LABS: VENOUS BLOOD GAS BASE EXCESS -1.7 mmol/L (0.0-2.0); VENOUS BLOOD GAS PO2 22 mm/Hg (30-55); VENOUS BLOOD PH 7.39 (7.32-7.43)
--- NOTE | 2018-05-04 18:03 | RAD ---
Date of service: 05/04/2018 HISTORY: cough COMPARISON: 07/14/2017 FINDINGS: LUNGS: Peripheral infiltrate affecting both right upper and right lower lobes. Increased interstitial markings peripherally in the left lung may be attributable to portable technique and poor inspiratory effort. PLEURA: No significant pleural effusion identified, no pneumothorax apparent. CARDIOVASCULAR: No atherosclerotic calcification present Normal. OSSEOUS STRUCTURES: No significant abnormalities. VISUALIZED UPPER ABDOMEN: Normal. OTHER FINDINGS: None. IMPRESSION: Extensive right upper, right lower lobe infiltrates. These represent new findings. Infiltrate/atelectasis left lower lobe accentuated by technique. Concordant results with the preliminary interpretation rendered by the emergency department physician procedure.
[2018-05-04 18:25] LABS: ATYPICAL LYMPHOCYTE 1 % (0.0-0.0); BAND 1 % (0-2); EOSINOPHIL 1 % (0.0-3.0); HYPOCHROMIA 2+; LYMPHOCYTE 7 % (22.0-35.0); MONOCYTE 7 % (1.0-6.0); NEUTROPHIL 83 % (50.0-70.0); PLATELET ESTIMATE NORMAL (NORMAL)
[2018-05-04 18:26] LABS: ROULEAU 2+; TOXIC GRANULATION 3+
[2018-05-04] MEDS ORDERED: Albuterol-Ipratrop 3 mg / 0.5 (3 ml) UD IH PRN (20:25)
--- NOTE | 2018-05-04 20:31 | CP.PCM.HP ---
History of Present Illness - History of Present Illness History of Present Illness: Eliane Corbett, PGY-1 Medicine H&P for Dr. Wong Reyes: CC: SOB and productive cough x5 days Pt is a 78 yo M with pmhx of HTN, PVD, COPD, prostate ca, AAA repair (12/20) who presents for productive cough and SOB which started about 5 days ago. Pt admits that his was having a similar cough earlier that day but that his has improved though he has not. He states that he is having SOB with exertion but denies any leg swelling, or orthopnea. He denies any recent travel. He admits to subjective fevers, but denies chills. He states that since tuesday he has not felt any body aches but states that he has felt weak. He denies any nasal congestion or runny nose at this time. He is having a productive cough that is productive of yellow sputum and SOB with exertion, but denies any other acute complaints at this time. He denies chest pain, palpitations or leg swelling, abd pain, n/v, c/d, or dysuria. Pmhx: HTN, PVD, COPD, prostate ca, AAA repair (12/20) Pshx: AAA repair in 12/20 All: NKDA Soc: 5cis/d, admits to social drinking, denies illicit drug use Fam: Non-contributory Present on Admission - Present on Admission Any Indicators Present on Admission: No Review of Systems - Review of Systems Review of Systems: 12 point ROS reviewed and negative except noted in HPI above. Past Patient History - Past Social History Smoking Status: Former Smoker - CARDIAC Hx Cardiac Disorders: Yes Hx Hypertension: Yes Hx Peripheral Vascular Disease: Yes - PULMONARY Hx Respiratory Disorders: No Hx Chronic Obstructive Pulmonary Disease (COPD): Yes - NEUROLOGICAL Hx Neurological Disorder: No - HEENT Hx HEENT Problems: Yes (reading glasses) Hx Cataracts: Yes (b/l sx b/l lens implant) - RENAL Hx Chronic Kidney Disease: No - ENDOCRINE/METABOLIC Hx Endocrine Disorders: No - HEMATOLOGICAL/ONCOLOGICAL Hx Blood Disorders: Yes Hx Cancer: Yes (prostate) Hx Chemotherapy: No Other/Comment: elevated psa no treatment other than annual prostate bx laast one done 07/20/17, dx around 6 yrs ago, pt denies any hx of lung ca - INTEGUMENTARY Hx Dermatological Problems: Yes Other/Comment: b/l groin dressings dry and intact - MUSCULOSKELETAL/RHEUMATOLOGICAL Hx Falls: No - GASTROINTESTINAL Hx Gastrointestinal Disorders: Yes (left inguinal hernia) - GENITOURINARY/GYNECOLOGICAL Hx Prostate Problems: Yes (elevated psa) - PSYCHIATRIC Hx Emotional Abuse: No Hx Physical Abuse: No Hx Substance Use: No - SURGICAL HISTORY Hx Abdominal Aortic Aneurysm Repair: Yes Other/Comment: AAA stent graft insertion 12/20/17, multiple prostate bx's - ANESTHESIA Hx Anesthesia Reactions: No Hx Malignant Hyperthermia: No Meds Allergies/Adverse Reactions: Allergies Allergy/AdvReac Type Severity Reaction Status Date / Time No Known Allergies Allergy Verified 07/28/16 07:59 Physical Exam - Constitutional Appears: Non-toxic, No Acute Distress - Head Exam Head Exam: ATRAUMATIC, NORMAL INSPECTION, NORMOCEPHALIC - Eye Exam Eye Exam: EOMI, Normal appearance Pupil Exam: PERRL - Neck Exam Neck exam: Positive for: Normal Inspection. Negative for: Lymphadenopathy, Tenderness - Respiratory Exam Respiratory Exam: Clear to Auscultation Bilateral, Rhonchi (noted in the R lung in the RLL.), NORMAL BREATHING PATTERN. absent: Accessory Muscle Use, Rales, Wheezes, Respiratory Distress, Stridor - Cardiovascular Exam Cardiovascular Exam: RRR, +S1, +S2. absent: Gallop, Rubs - GI/Abdominal Exam GI & Abdominal Exam: Normal Bowel Sounds, Soft. absent: Distended, Firm, Guarding, Tenderness - Extremities Exam Extremities exam: Positive for: normal inspection, pedal pulses present. Negative for: calf tenderness, tenderness - Back Exam Back exam: NORMAL INSPECTION. absent: CVA tenderness (L), CVA tenderness (R) - Neurological Exam Neurological exam: Alert, Oriented x3 - Psychiatric Exam Psychiatric exam: Normal Affect, Normal Mood - Skin Skin Exam: Dry, Intact, Warm Results - Vital Signs Recent Vital Signs: Last Vital Signs Temp 100.6 F H 05/04/18 17:23 Pulse 98 H 05/04/18 19:48 Resp 87 H 05/04/18 19:48 BP 136/78 05/04/18 19:48 Pulse Ox 96 05/04/18 19:48 - Labs Result Diagrams: 05/04/18 17:07 05/04/18 17:07 Labs: Laboratory Results - last 24 hr 05/04/18 05/04/18 05/04/18 05:33 17:07 17:07 WBC 7.2 RBC 3.73 Hgb 13.0 L D Hct 37.3 L MCV 100.0 D MCH 34.9 MCHC 34.9 RDW 17.6 H Plt Count 195 MPV 9.1 Neut % (Auto) 90.5 H Lymph % (Auto) 3.8 L Hughes % (Auto) 5.6 Eos % (Auto) 0.1 L Baso % (Auto) 0.0 Lymph # (Auto) 0.3 L Hughes # (Auto) 0.4 Eos # (Auto) 0.0 Baso # (Auto) 0.00 Absolute Neuts (auto) 6.47 Neutrophils % (Manual) 83 H Band Neutrophils % 1 Lymphocytes % (Manual) 7 L Atypical Lymphs % 1 H Monocytes % (Manual) 7 H Eosinophils % (Manual) 1 Toxic Granulation 3+ Platelet Evaluation Normal Hypochromasia 2+ Rouleaux 2+ PT 13.4 H INR 1.21 APTT 32.1 pO2 22 L VBG pH 7.39 VBG pCO2 38.0 L VBG HCO3 23.0 VBG Total CO2 24.2 VBG O2 Sat (Calc) 45.6 VBG Base Excess -1.7 L VBG Potassium 3.5 L Sodium 134.0 Chloride 103.0 Glucose 98 Lactate 1.6 FiO2 32.0 Crit Value Called To Rn Crit Value Called By Rt Blood Gas Notified Time 8553 Potassium Carbon Dioxide Anion Gap BUN Creatinine Est GFR ( Amer) Est GFR (Non-Af Amer) Random Glucose Calcium Phosphorus Magnesium Total Bilirubin AST ALT Alkaline Phosphatase Total Creatine Kinase Troponin I NT-Pro-B Natriuret Pep Total Protein Albumin Globulin Albumin/Globulin Ratio Venous Blood Potassium 3.5 L Influenza Typ A,B (EIA) 05/04/18 05/04/18 17:07 18:30 WBC RBC Hgb Hct MCV MCH MCHC RDW Plt Count MPV Neut % (Auto) Lymph % (Auto) Hughes % (Auto) Eos % (Auto) Baso % (Auto) Lymph # (Auto) Hughes # (Auto) Eos # (Auto) Baso # (Auto) Absolute Neuts (auto) Neutrophils % (Manual) Band Neutrophils % Lymphocytes % (Manual) Atypical Lymphs % Monocytes % (Manual) Eosinophils % (Manual) Toxic Granulation Platelet Evaluation Hypochromasia Rouleaux PT INR APTT pO2 VBG pH VBG pCO2 VBG HCO3 VBG Total CO2 VBG O2 Sat (Calc) VBG Base Excess VBG Potassium Sodium 135 Chloride 103 Glucose Lactate FiO2 Crit Value Called To Crit Value Called By Blood Gas Notified Time Potassium 3.9 Carbon Dioxide 22 Anion Gap 13 BUN 23 H Creatinine 1.1 Est GFR ( Amer) > 60 Est GFR (Non-Af Amer) > 60 Random Glucose 100 Calcium 9.2 Phosphorus 2.6 Magnesium 1.7 Total Bilirubin 0.6 AST 45 ALT 34 Alkaline Phosphatase 99 Total Creatine Kinase 70 Troponin I 0.02 NT-Pro-B Natriuret Pep 701 H Total Protein 7.4 Albumin 3.7 Globulin 3.8 Albumin/Globulin Ratio 1.0 L Venous Blood Potassium Influenza Typ A,B (EIA) Negative for flu a/b Assessment & Plan - Assessment and Plan (Free Text) Assessment: Pt is a 78 yo M with pmhx of HTN, PVD, COPD, prostate ca, AAA repair (12/20) who presents for productive cough and SOB which started about 5 days ago. CXR shows: extensive RU and RLL infiltrates. Infiltrate vs atelectasis in LLL. Plan: 1) RU and RLL CAP: - Pt denies being hospitalized since his last admission in December 2017 - Pt does not have elevated WBC count or elevated lactate. - CXR shows RLL and RUL infiltrates - pre-elias read - Rocephin and Zithromax IV started - Blood cx - Sputum cx - Flu (-) - f/u procal 2) Hx of COPD: - Pt is not wheezing clinically on exam - Pt already started on rocephin and zithromax - Duonebs PRN - Cont on pts home inhalers 3) HTN: - Cont home norvasc, cozaar 4) Hx of HLD: - Cont home lipitor PPx: GI: Protonix DVT: heparin
[2018-05-04] MEDS ORDERED: guaiFENesin 100 mg/5 ml Syrup UD PO PRN (20:46)
[2018-05-04 22:38] VITALS: BMI 21.0
[2018-05-05] MEDS: Albuterol-Ipratrop 3 mg / 0.5 (3 ml) UD IH SCH ×4 (01:30→19:33)
[2018-05-05] MEDS: Pantoprazole 40 mg EC Tab PO SCH (05:23)
[2018-05-05 07:08] LABS: ALB/GLOB RATIO 0.9 (1.1-1.8); ALBUMIN 3.2 g/dL (3.0-4.8); ALT/SGPT 34 U/L (7-56); AST/SGOT 44 U/L (17-59); BASO # 0.02 K/mm3 (0.0-2.0); BASO % 0.4 % (0.0-3.0); BLOOD UREA NITROGEN 20 mg/dL (7-21); CALCIUM 8.6 mg/dL (8.4-10.5); EOS % 0.2 % (1.5-5.0); GFR NON-AFRICAN AMERICAN > 60; HEMOGLOBIN 11.8 g/dL (14.0-18.0); LYMPH # 0.8 (1.2-3.4); LYMPH % 14.7 % (22.0-35.0); MEAN CORPUSCULAR HEMOGLOBIN 33.5 pg (25.0-35.0); MEAN CORPUSCULAR HGB CONC 32.9 g/dl (31.0-37.0); MEAN PLATELET VOLUME 9.8 fl (7.0-11.0); MONO # 0.5 (0.1-0.6); RBC 3.52 10^6/uL (3.5-6.1); RED CELL DISTRIBUTION WIDTH 18.2 % (11.5-14.5); WHITE BLOOD COUNT 5.7 10^3/uL (4.5-11.0)
--- NOTE | 2018-05-05 08:06 | CARD ---
APPROVED REPORT Date of service: 05/04/2018 EKG Measurement Heart [id number] <Conclusion> Atrial fibrillation with rapid ventricular response Inferior infarct, age Old? Abnormal ECG
[2018-05-05] MEDS: cefTRIAXone 1 gm 1 GM/100 ML BAG IVPB SCH (09:05)
[2018-05-05] MEDS: Azithromycin 500MG/NS 250ml 500 MG/250 ML BAG IVPB SCH (10:11)
--- NOTE | 2018-05-05 11:33 | CARD ---
APPROVED REPORT Date of service: 05/04/2018 EKG Measurement Heart [id number] <Conclusion> Normal sinus rhythm Normal ECG
[2018-05-05] MEDS: UMECLIDINIUM BRM IH SCH (14:26)
[2018-05-05] MEDS: VILANTEROL TR IH SCH (14:26)
--- NOTE | 2018-05-05 16:41 | CP.PCM.APN ---
Subjective - Date & Time of Evaluation Date of Evaluation: 05/05/18 Time of Evaluation: 11:00 - Subjective Subjective: Pt. seen and examined lying in bed. Complains of cough, productive w.phlegm, complaints of back pain with coughing episodes, states gets short of breath with walking. Review of Systems - Constitutional Constitutional: absent: As Per HPI, Anorexia, Chills, Daytime Sleepiness, Excessive Sweating, Fatigue, Fever, Frequent Falls, Headache, Increased Appetite, Lethargy, Malaise, Night Sweats, Snoring, Sleep Apnea, Weight Gain, Weight Loss, Weakness, Other - EENT Eyes: absent: As Per HPI, Blind Spots, Blurred Vision, Change in Vision, Decreased Night Vision, Diplopia, Discharge, Dry Eye, Exophthalmos, Floaters, Irritation, Itchy Eyes, Loss of Peripheral Vision, Pain, Photophobia, Requires Corrective Lenses, Sees Flashes, Spots in Vision, Tunnel Vision, Other Visual Disturbances, Loss of Vision, Other Ears: absent: As Per HPI, Decreased Hearing, Ear Discharge, Ear Pain, Tinnitus, Abnormal Hearing, Disequilibrium, Dizziness, Other Nose/Mouth/Throat: absent: As Per HPI, Epistaxis, Nasal Congestion, Nasal Discharge, Nasal Obstruction, Nasal Trauma, Nose Pain, Post Nasal Drip, Sinus Pain, Sinus Pressure, Bleeding Gums, Change in Voice, Dental Pain, Dry Mouth, Dysphagia, Halitosis, Hoarsness, Lip Swelling, Mouth Lesions, Mouth Pain, Odynophagia, Sore Throat, Throat Swelling, Tongue Swelling, Facial Pain, Neck Pain, Neck Mass, Other - Cardiovascular Cardiovascular: Dyspnea on Exertion - Respiratory Respiratory: Cough - Gastrointestinal Gastrointestinal: absent: As Per HPI, Abdominal Pain, Belching, Bloating, Change in Bowel Habits, Change in Stool Character, Coffee Ground Emesis, Constipation, Cramping, Diarrhea, Dyspepsia, Dysphagia, Early Satiety, Excessive Flatus, Fecal Incontinence, Heartburn, Hematemesis, Hematochezia, Loose Stools, Melena, N ausea, Odynophagia, Temesmus, Vomiting, Other - Genitourinary Genitourinary: absent: As Per HPI, Change in Urinary Stream, Difficulty Urinating, Dysuria, Flank Pain, Hematuria, Pyuria, Nocturia, Urinary Incontinence, Urinary Frequency, Urinary Hesitance, Urinary Urgency, Voiding Freq/Small Amts, Freq UTI, Hx Renal/Bladder Calculi, Hx /Renal Surgery, Bladder Distension, Other - Musculoskeletal Musculoskeletal: Back Pain - Integumentary Integumentary: absent: As Per HPI, Acne, Alopecia, Bleeding Lesions, Change in Hair, Change in Nails, Change in Pigmentation, Changing Lesions, Dry Skin, Erythema, Furuncle, Hirsutism, Lesions, New Lesions, Non-Healing Lesions, Photosensitivity, Pruritus, Rash, Skin Pain, Skin Ulcer, Sores, Striae, Swelling, Unusual Bruising, Wounds, Jaundice, Other - Neurological Neurological: absent: As Per HPI, Abnormal Gait, Abnormal Hearing, Abnormal Movements, Abnormal Speech, Behavioral Changes, Burning Sensations, Confusion, Convulsions, Disequilibrium, Dizziness, Numbness, Focal Weakness, Frequent Falls, Headaches, Lack of Coordination, Loss of Vision, Memory Loss, Paresthesias, Radicular Pain, Restless Legs, Sensory Deficit, Syncope, Tingling, Tremor, Vertigo, Weakness, Other Visual Disturbances, Other - Psychiatric Psychiatric: absent: As Per HPI, Abnormal Sleep Pattern, Anhedonia, Anxiety, Auditory Hallucinations, Behavioral Changes, Change in Appetite, Change in Libido, Confusion, Depression, Difficulty Concentrating, Hallucinations, Homicidal Ideation, Hopelessness, Irritability, Memory Loss, Mood Swings, Panic Attacks, Paranoia, Suicidal Ideation, Visual Hallucinations, Tactile Hallucinations, Other - Endocrine Endocrine: absent: As Per HPI, Change in Body Appearance, Change in Libido, Cold Intolorance, Deepening of Voice, Excessive Sweating, Fatigue, Flushing, Heat Intolorance, Increase in Ring/Shoe/Hat Size, Palpitations, Polydipsia, Polyphagia, Polyuria, Other - Hematologic/Lymphatic Hematologic: absent: As Per HPI, Easy Bleeding, Easy Bruising, Lymphadenopathy, Other Objective - Vital Signs/Intake and Output Vital Signs (last 24 hours): Temp Pulse Resp BP Pulse Ox 100.2 F H 98 H 18 139/75 96 05/05/18 12:00 05/05/18 14:00 05/05/18 12:00 05/05/18 12:00 05/05/18 09:00 Intake and Output: 05/05/18 05/05/18 06:59 18:59 Intake Total 360 Output Total 1060 Balance -700 - Medications Medications: Current Medications Acetaminophen (Tylenol 325mg Tab) 650 mg PO Q6H PRN PRN Reason: Temperature Albuterol/Ipratropium (Duoneb 3 Mg/0.5 Mg (3 Ml) Ud) 3 ml IH [id number] [facility] Last Admin: 05/05/18 13:11 Dose: 3 ml Albuterol/Ipratropium (Duoneb 3 Mg/0.5 Mg (3 Ml) Ud) 3 ml IH Q2H PRN PRN Reason: Shortness of Breath Amlodipine Besylate (Norvasc) 5 mg PO DAILY [facility] Last Admin: 05/05/18 09:05 Dose: 5 mg Aspirin (Ecotrin) 81 mg PO DAILY [facility] Last Admin: 05/05/18 09:06 Dose: 81 mg Atorvastatin Calcium (Lipitor) 20 mg PO DIN [facility] Guaifenesin (Robitussin) 100 mg PO Q4H PRN PRN Reason: Cough Heparin Sodium (Porcine) (Heparin) 5,000 units SC Q8 [facility]; Protocol Last Admin: 05/05/18 13:07 Dose: Not Given Ceftriaxone Sodium (Rocephin 1 Gram Ivpb) 1 gm in 100 mls @ 100 mls/hr IVPB DAILY [facility]; Protocol Last Admin: 05/05/18 09:05 Dose: 100 mls/hr Azithromycin (Zithromax 500mg In Ns) 500 mg in 250 mls @ 167 mls/hr IVPB DAILY [facility]; Protocol Last Admin: 05/05/18 10:11 Dose: 167 mls/hr Losartan Potassium (Cozaar) 50 mg PO DAILY [facility] Last Admin: 05/05/18 09:06 Dose: 50 mg (Fluticasone Furoate [Arnuity Ellipta] 1 Inh) 1 inh IH DAILY [facility] Last Admin: 05/05/18 14:25 Dose: Not Given (Umeclidinium Brm/Vilanterol Tr [Anoro Ellipta 62.5-25 Mcg Inh] 1 1 inh IH DAILY [facility] Last Admin: 05/05/18 14:26 Dose: Not Given Pantoprazole Sodium (Protonix Ec Tab) 40 mg PO 0600 [facility] Last Admin: 05/05/18 05:23 Dose: 40 mg - Labs Labs: 05/05/18 06:30 05/05/18 06:30 PT 13.4 SECONDS (9.4-12.5) H 05/04/18 17:07 INR 1.21 05/04/18 17:07 APTT 32.1 Seconds (26.9-38.3) 05/04/18 17:07 - Constitutional Appears: Non-toxic - Head Exam Head Exam: NORMOCEPHALIC - Eye Exam Eye Exam: absent: Conjunctival injection, EOMI, Normal appearance, Nystagmus, Periorbital swelling, Periorbital tenderness, PERRL, Scleral icterus - ENT Exam ENT Exam: absent: Mucous Membranes Dry, Mucous Membranes Moist, Normal Exam, Normal External Ear Exam, Normal Oropharynx, TM's Normal Bilaterally - Neck Exam Neck Exam: Full ROM - Respiratory Exam Respiratory Exam: Decreased Breath Sounds - Cardiovascular Exam Cardiovascular Exam: REGULAR RHYTHM, +S1, +S2 - GI/Abdominal Exam GI & Abdominal Exam: Soft, Normal Bowel Sounds - Rectal Exam Rectal Exam: Deferred - Exam Exam: absent: Circumcision, NORMAL INSPECTION, Scrotal Swelling, Testicular Tenderness, Uretheral Discharge, Testicular Vertical Lie, Bladder Distension External exam: absent: Ecchymosis, Erythema, Lacerations, Lesions, NORMAL EXTERNAL EXAM, Swelling - Extremities Exam Extremities Exam: Full ROM, Normal Inspection - Back Exam Back Exam: NORMAL INSPECTION - Neurological Exam Neurological Exam: Alert, Awake, Oriented x3 - Psychiatric Exam Psychiatric exam: Normal Affect, Normal Mood - Skin Skin Exam: Normal Color, Warm Assessment and Plan - Assessment and Plan (Free Text) Assessment: ITS Impressions Chest X-Ray 05/04/18 16:49 IMPRESSION: Extensive right upper, right lower lobe infiltrates. These represent new findings. Infiltrate/atelectasis left lower lobe accentuated by technique. Concordant results with the preliminary interpretation rendered by the emergency department physician procedure. Assessment: 78 year old male presents to the ED for evaluation of lightheadedness/dizziness, shortness of breath and fever at home, admitted now with pneumonia, for further eval and treatment. Plan: 1. Pneumonia with RLL and extensive RUL infiltrates. -Antibx as per I.D. Blood Cultures, sputum cultures pending. 2. Cough -Secondary to pneumonia, Continue Robitussin Pt. eval pending. Will continue to monitor clinical status and follow closely.
--- NOTE | 2018-05-05 19:23 | CP.PCM.PN ---
<Eliane Corbett - Last Filed: 05/05/18 20:21> Subjective - Date & Time of Evaluation Date of Evaluation: 05/05/18 Time of Evaluation: 09:30 - Subjective Subjective: Eliane Corbett, PGY-1 Medicine Progress Note for Dr. Fofana: Pt was seen and examined this AM at bedside. Pt continues to state that he has SOB w/exertion and states that he has not felt any improvement in his breathing. He states that he still feels feverish but denies chills. He still has a productive cough and is having difficulty with ambulating to the bathroom due to his SOB. Objective - Vital Signs/Intake and Output Vital Signs (last 24 hours): Temp Pulse Resp BP Pulse Ox 100.2 F H 113 H 18 139/75 96 05/05/18 12:00 05/05/18 18:00 05/05/18 12:00 05/05/18 12:00 05/05/18 09:00 Intake and Output: 05/05/18 05/06/18 18:59 06:59 Intake Total 1430 Balance 1430 - Medications Medications: Current Medications Acetaminophen (Tylenol 325mg Tab) 650 mg PO Q6H PRN PRN Reason: Temperature Albuterol/Ipratropium (Duoneb 3 Mg/0.5 Mg (3 Ml) Ud) 3 ml IH [id number] [facility] Last Admin: 05/05/18 13:11 Dose: 3 ml Albuterol/Ipratropium (Duoneb 3 Mg/0.5 Mg (3 Ml) Ud) 3 ml IH Q2H PRN PRN Reason: Shortness of Breath Amlodipine Besylate (Norvasc) 5 mg PO DAILY [facility] Last Admin: 05/05/18 09:05 Dose: 5 mg Aspirin (Ecotrin) 81 mg PO DAILY [facility] Last Admin: 05/05/18 09:06 Dose: 81 mg Atorvastatin Calcium (Lipitor) 20 mg PO DIN [facility] Last Admin: 05/05/18 16:49 Dose: 20 mg Guaifenesin (Robitussin) 100 mg PO Q4H PRN PRN Reason: Cough Heparin Sodium (Porcine) (Heparin) 5,000 units SC Q8 [facility]; Protocol Last Admin: 05/05/18 13:07 Dose: Not Given Ceftriaxone Sodium (Rocephin 1 Gram Ivpb) 1 gm in 100 mls @ 100 mls/hr IVPB DAILY [facility]; Protocol Last Admin: 05/05/18 09:05 Dose: 100 mls/hr Azithromycin (Zithromax 500mg In Ns) 500 mg in 250 mls @ 167 mls/hr IVPB DAILY [facility]; Protocol Last Admin: 05/05/18 10:11 Dose: 167 mls/hr Losartan Potassium (Cozaar) 50 mg PO DAILY [facility] Last Admin: 05/05/18 09:06 Dose: 50 mg (Fluticasone Furoate [Arnuity Ellipta] 1 Inh) 1 inh IH DAILY [facility] Last Admin: 05/05/18 14:25 Dose: Not Given (Umeclidinium Brm/Vilanterol Tr [Anoro Ellipta 62.5-25 Mcg Inh] 1 1 inh IH DAILY [facility] Last Admin: 05/05/18 14:26 Dose: Not Given Pantoprazole Sodium (Protonix Ec Tab) 40 mg PO 0600 [facility] Last Admin: 05/05/18 05:23 Dose: 40 mg - Labs Labs: 05/05/18 06:30 05/05/18 06:30 PT 13.4 SECONDS (9.4-12.5) H 05/04/18 17:07 INR 1.21 05/04/18 17:07 APTT 32.1 Seconds (26.9-38.3) 05/04/18 17:07 - Constitutional Appears: Non-toxic, No Acute Distress - Head Exam Head Exam: ATRAUMATIC, NORMAL INSPECTION, NORMOCEPHALIC - Eye Exam Eye Exam: EOMI, Normal appearance, PERRL - Respiratory Exam Respiratory Exam: Rhonchi (noted in the R lung particularly in RLL. ), NORMAL BREATHING PATTERN. absent: Accessory Muscle Use, Rales, Wheezes, Respiratory Distress, Stridor - Cardiovascular Exam Cardiovascular Exam: RRR, +S1, +S2. absent: Gallop, Rubs - GI/Abdominal Exam GI & Abdominal Exam: Soft, Normal Bowel Sounds. absent: Firm, Guarding, Rigid, Tenderness - Extremities Exam Extremities Exam: Normal Inspection, Pedal Edema. absent: Calf Tenderness, Tenderness - Back Exam Back Exam: NORMAL INSPECTION. absent: CVA tenderness (L), CVA tenderness (R) - Neurological Exam Neurological Exam: Alert, Awake, Oriented x3 - Psychiatric Exam Psychiatric exam: Normal Affect, Normal Mood - Skin Skin Exam: Dry, Normal Color, Warm Assessment and Plan - Assessment and Plan (Free Text) Assessment: Pt is a 78 yo M with pmhx of HTN, PVD, COPD, prostate ca, AAA repair (12/20) who presents for productive cough and SOB which started about 5 days ago. CXR shows: extensive RU and RLL infiltrates. Infiltrate vs atelectasis in LLL. Plan: 1) RU and RLL CAP: - Pt denies being hospitalized since his last admission in December 2017 - Pt does not have elevated WBC count or elevated lactate. - CXR shows RLL and RUL infiltrates - Rocephin and Zithromax IV Day 2 - Blood cx (-) after 24 hrs - Sputum cx - Flu (-) - Procal: elevated at 2. 2) Hx of COPD: - Pt is not wheezing clinically on exam - Pt already started on rocephin and zithromax - Duonebs PRN - Cont on pts home inhalers 3) HTN: - Cont home norvasc, cozaar 4) Hx of HLD: - Cont home lipitor PPx: GI: Protonix DVT: heparin Case seen and discussed with Dr. Brigido Corbett, PGY-1 <Shy Fofana - Last Filed: 05/06/18 07:21> Objective - Vital Signs/Intake and Output Vital Signs (last 24 hours): Temp Pulse Resp BP Pulse Ox 98.0 F 69 22 148/92 H 99 05/06/18 06:00 05/06/18 06:00 05/06/18 06:00 05/06/18 06:00 05/06/18 06:00 Intake and Output: 05/06/18 05/06/18 06:59 18:59 Intake Total 480 Balance 480 - Medications Medications: Current Medications Acetaminophen (Tylenol 325mg Tab) 650 mg PO Q6H PRN PRN Reason: Temperature Albuterol/Ipratropium (Duoneb 3 Mg/0.5 Mg (3 Ml) Ud) 3 ml IH [id number] [facility] Last Admin: 05/06/18 01:21 Dose: 3 ml Albuterol/Ipratropium (Duoneb 3 Mg/0.5 Mg (3 Ml) Ud) 3 ml IH Q2H PRN PRN Reason: Shortness of Breath Amlodipine Besylate (Norvasc) 5 mg PO DAILY [facility] Last Admin: 05/05/18 09:05 Dose: 5 mg Aspirin (Ecotrin) 81 mg PO DAILY [facility] Last Admin: 05/05/18 09:06 Dose: 81 mg Atorvastatin Calcium (Lipitor) 20 mg PO DIN [facility] Last Admin: 05/05/18 16:49 Dose: 20 mg Guaifenesin (Robitussin) 100 mg PO Q4H PRN PRN Reason: Cough Heparin Sodium (Porcine) (Heparin) 5,000 units SC Q8 [facility]; Protocol Last Admin: 05/05/18 21:40 Dose: Not Given Ceftriaxone Sodium (Rocephin 1 Gram Ivpb) 1 gm in 100 mls @ 100 mls/hr IVPB DAILY [facility]; Protocol Last Admin: 05/05/18 09:05 Dose: 100 mls/hr Azithromycin (Zithromax 500mg In Ns) 500 mg in 250 mls @ 167 mls/hr IVPB DAILY [facility]; Protocol Last Admin: 05/05/18 10:11 Dose: 167 mls/hr Losartan Potassium (Cozaar) 50 mg PO DAILY [facility] Last Admin: 05/05/18 09:06 Dose: 50 mg (Fluticasone Furoate [Arnuity Ellipta] 1 Inh) 1 inh IH DAILY [facility] Last Admin: 05/05/18 14:25 Dose: Not Given (Umeclidinium Brm/Vilanterol Tr [Anoro Ellipta 62.5-25 Mcg Inh] 1 1 inh IH DAILY [facility] Last Admin: 05/05/18 14:26 Dose: Not Given Pantoprazole Sodium (Protonix Ec Tab) 40 mg PO 0600 [facility] Last Admin: 05/06/18 06:08 Dose: 40 mg - Labs Labs: 05/05/18 06:30 05/05/18 06:30 PT 13.4 SECONDS (9.4-12.5) H 05/04/18 17:07 INR 1.21 05/04/18 17:07 APTT 32.1 Seconds (26.9-38.3) 05/04/18 17:07 Attending/Attestation - Attestation I have personally seen and examined this patient.: Yes I have fully participated in the care of the patient.: Yes I have reviewed all pertinent clinical information, including history, physical exam and plan: Yes Notes (Text): 05/05/18 78 year old male with past medical history of COPD, hypertension, prostate cancer, and AAA repair who presented with fever and shortness of breath; foudn to have multifocal (RUL/RLL/LLL) pneumonia. Last fever was last night with low grade temperature of 100.2 this afternoon. Procalcitonin is elevated. Continue with iv antibiotics while awaiting cultures. Continue with duonebs. Shy Fofana MD Hospitalist.
[2018-05-06] MEDS: Albuterol-Ipratrop 3 mg / 0.5 (3 ml) UD IH SCH ×3 (01:21→14:00)
[2018-05-06] MEDS: Pantoprazole 40 mg EC Tab PO SCH (06:08)
[2018-05-06 07:26] LABS: BASO # 0.02 K/mm3 (0.0-2.0); BASO % 0.5 % (0.0-3.0); EOS % 1.1 % (1.5-5.0); HEMOGLOBIN 11.4 g/dL (14.0-18.0); LYMPH # 0.7 (1.2-3.4); LYMPH % 19.8 % (22.0-35.0); MEAN CELL VOLUME 101.2 fl (80.0-105.0); MEAN CORPUSCULAR HEMOGLOBIN 33.5 pg (25.0-35.0); MEAN CORPUSCULAR HGB CONC 33.1 g/dl (31.0-37.0); MONO # 0.5 (0.1-0.6); MONO % 14.8 % (1.0-6.0); RBC 3.4 10^6/uL (3.5-6.1); RED CELL DISTRIBUTION WIDTH 17.9 % (11.5-14.5); WHITE BLOOD COUNT 3.6 10^3/uL (4.5-11.0)
[2018-05-06 07:46] LABS: ALB/GLOB RATIO 0.9 (1.1-1.8); ALBUMIN 3.1 g/dL (3.0-4.8); ALT/SGPT 43 U/L (7-56); AST/SGOT 54 U/L (17-59); BLOOD UREA NITROGEN 18 mg/dL (7-21); CALCIUM 8.6 mg/dL (8.4-10.5); GFR NON-AFRICAN AMERICAN > 60
[2018-05-06] MEDS ORDERED: Potassium Chloride 20 mEq ER Tab PO STA (07:47)
[2018-05-06] MEDS: VILANTEROL TR IH SCH (09:37)
[2018-05-06] MEDS: UMECLIDINIUM BRM IH SCH (09:37)
[2018-05-06] MEDS: cefTRIAXone 1 gm 1 GM/100 ML BAG IVPB SCH (09:38)
[2018-05-06] MEDS: Azithromycin 500MG/NS 250ml 500 MG/250 ML BAG IVPB SCH (10:29)
[2018-05-06 12:55] VITALS: O2SAT 95
[2018-05-06 14:36] VITALS: BP 117/68; PULSE 83; RESP 19; TEMP 98.2
--- NOTE | 2018-05-06 15:34 | CP.PCM.DIS ---
<RodriguezAnthony saini - Last Filed: 05/06/18 17:13> Provider - Provider Date of Admission: 05/05/18 14:41 Attending physician: Shy Fofana MD Primary care physician: Paulino Wyatt APN Time Spent in preparation of Discharge (in minutes): 40 Diagnosis - Discharge Diagnosis (1) Pneumonia Status: Acute Hospital Course - Lab Results Lab Results: Micro Results 05/04/18 17:38 Blood Blood Culture - Preliminary NO GROWTH AFTER 24 HOURS 05/04/18 17:10 Blood Blood Culture - Preliminary NO GROWTH AFTER 24 HOURS Most Recent Lab Values WBC 3.6 10^3/uL (4.5-11.0) L D 05/06/18 06:00 RBC 3.40 10^6/uL (3.5-6.1) L 05/06/18 06:00 Hgb 11.4 g/dL (14.0-18.0) L 05/06/18 06:00 Hct 34.4 % (42.0-52.0) L 05/06/18 06:00 MCV 101.2 fl (80.0-105.0) 05/06/18 06:00 MCH 33.5 pg (25.0-35.0) 05/06/18 06:00 MCHC 33.1 g/dl (31.0-37.0) 05/06/18 06:00 RDW 17.9 % (11.5-14.5) H 05/06/18 06:00 Plt Count 235 10^3/uL (120.0-450.0) 05/06/18 06:00 MPV 9.0 fl (7.0-11.0) 05/06/18 06:00 Neut % (Auto) 63.8 % (50.0-68.0) 05/06/18 06:00 Lymph % (Auto) 19.8 % (22.0-35.0) L 05/06/18 06:00 [place] % (Auto) 14.8 % (1.0-6.0) H 05/06/18 06:00 Eos % (Auto) 1.1 % (1.5-5.0) L 05/06/18 06:00 Baso % (Auto) 0.5 % (0.0-3.0) 05/06/18 06:00 Lymph # (Auto) 0.7 (1.2-3.4) L 05/06/18 06:00 [place] # (Auto) 0.5 (0.1-0.6) 05/06/18 06:00 Eos # (Auto) 0.0 (0.0-0.7) 05/06/18 06:00 Baso # (Auto) 0.02 K/mm3 (0.0-2.0) 05/06/18 06:00 Absolute Neuts (auto) 2.32 (1.4-6.5) 05/06/18 06:00 Neutrophils % (Manual) 83 % (50.0-70.0) H 05/04/18 17:07 Band Neutrophils % 1 % (0-2) 05/04/18 17:07 Lymphocytes % (Manual) 7 % (22.0-35.0) L 05/04/18 17:07 Atypical Lymphs % 1 % (0.0-0.0) H 05/04/18 17:07 Monocytes % (Manual) 7 % (1.0-6.0) H 05/04/18 17:07 Eosinophils % (Manual) 1 % (0.0-3.0) 05/04/18 17:07 Toxic Granulation 3+ 05/04/18 17:07 Platelet Evaluation Normal (NORMAL) 05/04/18 17:07 Hypochromasia 2+ 05/04/18 17:07 Rouleaux 2+ 05/04/18 17:07 PT 13.4 SECONDS (9.4-12.5) H 05/04/18 17:07 INR 1.21 05/04/18 17:07 APTT 32.1 Seconds (26.9-38.3) 05/04/18 17:07 pO2 22 mm/Hg (30-55) L 05/04/18 05:33 VBG pH 7.39 (7.32-7.43) 05/04/18 05:33 VBG pCO2 38.0 (40-60) L 05/04/18 05:33 VBG HCO3 23.0 mmol/l (21-28) 05/04/18 05:33 VBG Total CO2 24.2 mmol.L (22-28) 05/04/18 05:33 VBG O2 Sat (Calc) 45.6 % (40-65) 05/04/18 05:33 VBG Base Excess -1.7 mmol/L (0.0-2.0) L 05/04/18 05:33 VBG Potassium 3.5 mmol/L (3.6-5.2) L 05/04/18 05:33 Sodium 134.0 mmol/L (132-148) 05/04/18 05:33 Chloride 103.0 mmol/L (98-107) 05/04/18 05:33 Glucose 98 mg/dl (75-110) 05/04/18 05:33 Lactate 1.6 mmol/L (0.7-2.1) 05/04/18 05:33 FiO2 32.0 % 05/04/18 05:33 Crit Value Called To Rn 05/04/18 05:33 Crit Value Called By Rt 05/04/18 05:33 Blood Gas Notified Time 1742 05/04/18 05:33 Sodium 138 mmol/L (132-148) 05/06/18 06:00 Potassium 3.4 mmol/L (3.6-5.0) L 05/06/18 06:00 Chloride 108 mmol/L (98-107) H 05/06/18 06:00 Carbon Dioxide 24 mmol/L (21-33) 05/06/18 06:00 Anion Gap 9 (10-20) L 05/06/18 06:00 BUN 18 mg/dL (7-21) 05/06/18 06:00 Creatinine 0.8 mg/dl (0.8-1.5) 05/06/18 06:00 Est GFR ( Amer) > 60 05/06/18 06:00 Est GFR (Non-Af Amer) > 60 05/06/18 06:00 Random Glucose 90 mg/dL (70-110) 05/06/18 06:00 Calcium 8.6 mg/dL (8.4-10.5) 05/06/18 06:00 Phosphorus 3.8 mg/dL (2.5-4.5) 05/06/18 06:00 Magnesium 2.0 mg/dL (1.7-2.2) 05/06/18 06:00 Total Bilirubin 0.4 mg/dL (0.2-1.3) 05/06/18 06:00 AST 54 U/L (17-59) 05/06/18 06:00 ALT 43 U/L (7-56) 05/06/18 06:00 Alkaline Phosphatase 94 U/L (38-126) 05/06/18 06:00 Total Creatine Kinase 70 U/L (35-230) 05/04/18 17:07 Troponin I 0.02 ng/mL 05/04/18 17:07 NT-Pro-B Natriuret Pep 701 pg/mL (0-450) H 05/04/18 17:07 Total Protein 6.6 g/dL (5.8-8.3) 05/06/18 06:00 Albumin 3.1 g/dL (3.0-4.8) 05/06/18 06:00 Globulin 3.5 gm/dL 05/06/18 06:00 Albumin/Globulin Ratio 0.9 (1.1-1.8) L 05/06/18 06:00 Procalcitonin 2.01 NG/ML (0.19-0.49) H 05/04/18 21:45 Venous Blood Potassium 3.5 mmol/L (3.6-5.2) L 05/04/18 05:33 Influenza Typ A,B (EIA) Negative for flu a/b (NEGATIVE) 05/04/18 18:30 - Hospital Course Hospital Course: Anthony Rodirguez DO, PGY-1 Hospitalist Discharge Summary for Dr. Fofana Mr. Irizarry is a 78 year old male with PMH of HTN, PVD, COPD, prostate ca, AAA repair (12/20) who presents for productive cough and SOB which started about 5 days ago. CXR identified extensive RU and RLL infiltrates with positive procal. He was subsequently admitted and treated for complicated community acquired PNA. He was started on rocephin and azithromycin and received 2 days of therapy in the hospital. Blood cx are negative to date. He continued to improve and stated his cough and SOB had improved this AM. He stated he felt ready to go home and that his was feeling better at home. He will be discharged on and was instructed to take augmentin twice a day for 8 more days and azithromycin once a day for four more days. He was instructed to follow up with his primary medical doctor within one week of discharge. Plan was discussed with patient. All questions were answered. Patient seen, examined, and discharge plan discussed with my attending Dr. Brigido Rodriguez D.O. IM Resident PGY-1 Discharge Exam - Head Exam Head Exam: ATRAUMATIC, NORMAL INSPECTION, NORMOCEPHALIC - Eye Exam Eye Exam: EOMI, Normal appearance, PERRL - ENT Exam ENT Exam: Mucous Membranes Moist - Neck Exam Neck exam: Full Rom, Normal Inspection - Respiratory Exam Respiratory Exam: Rales (improved from prior exams, loudest LLL). absent: Accessory Muscle Use, Rhonchi, Wheezes, Respiratory Distress - Cardiovascular Exam Cardiovascular Exam: REGULAR RHYTHM, RRR - GI/Abdominal Exam GI & Abdominal Exam: Normal Bowel Sounds, Unremarkable. absent: Soft - Extremities Exam Extremities exam: full ROM, normal inspection - Back Exam Back exam: NORMAL INSPECTION - Neurological Exam Neurological exam: Alert, Oriented x3 - Psychiatric Exam Psychiatric exam: Normal Affect, Normal Mood - Skin Skin Exam: Dry, Intact, Warm Discharge Plan - Discharge Medications Prescriptions: Amoxicillin/Clavulanate [Augmentin 875 MG-125 MG] 1 tab PO BID 8 Days #16 tab Azithromycin [Zithromax] 500 mg PO DAILY 3 Days #3 tablet - Follow Up Plan Condition: FAIR Disposition: HOME/ ROUTINE Instructions: Pneumonia in Adults, Pneumonia, Adult (DC), Community-Acquired Pneumonia in Adults, Atypical Pneumonia (Mycoplasma and Viral) (DC), Community- Acquired Pneumonia, Adult (DC) Additional Instructions: Please follow up with your primary medical doctor within 1 week of your discharge. We have given you prescriptions for two antibiotics. Please take augmentin twice a day for the next 8 days. Please take azithromycin once a day for the next 3 days. Please continue to take your other medicines as prescribed. If any of your symptoms of fever, cough worsen or if you begin to have worsening shortness of breath or chest pain, please return to the nearest ED. Diet: Heart Healthy Diet Patient states he is up to date with regards to the flu and the pneumococcal vaccine. Referrals: Paulino Wyatt APN, APN [Primary Care Provider] - <Shy Fofana - Last Filed: 05/06/18 17:24> Provider - Provider Date of Admission: 05/05/18 14:41 Attending physician: Shy Fofana MD Primary care physician: Paulino Wyatt, [facility] Hospital Course - Lab Results Lab Results: Micro Results 05/04/18 17:38 Blood Blood Culture - Preliminary NO GROWTH AFTER 24 HOURS 05/04/18 17:10 Blood Blood Culture - Preliminary NO GROWTH AFTER 24 HOURS Most Recent Lab Values WBC 3.6 10^3/uL (4.5-11.0) L D 05/06/18 06:00 RBC 3.40 10^6/uL (3.5-6.1) L 05/06/18 06:00 Hgb 11.4 g/dL (14.0-18.0) L 05/06/18 06:00 Hct 34.4 % (42.0-52.0) L 05/06/18 06:00 MCV 101.2 fl (80.0-105.0) 05/06/18 06:00 MCH 33.5 pg (25.0-35.0) 05/06/18 06:00 MCHC 33.1 g/dl (31.0-37.0) 05/06/18 06:00 RDW 17.9 % (11.5-14.5) H 05/06/18 06:00 Plt Count 235 10^3/uL (120.0-450.0) 05/06/18 06:00 MPV 9.0 fl (7.0-11.0) 05/06/18 06:00 Neut % (Auto) 63.8 % (50.0-68.0) 05/06/18 06:00 Lymph % (Auto) 19.8 % (22.0-35.0) L 05/06/18 06:00 [place] % (Auto) 14.8 % (1.0-6.0) H 05/06/18 06:00 Eos % (Auto) 1.1 % (1.5-5.0) L 05/06/18 06:00 Baso % (Auto) 0.5 % (0.0-3.0) 05/06/18 06:00 Lymph # (Auto) 0.7 (1.2-3.4) L 05/06/18 06:00 [place] # (Auto) 0.5 (0.1-0.6) 05/06/18 06:00 Eos # (Auto) 0.0 (0.0-0.7) 05/06/18 06:00 Baso # (Auto) 0.02 K/mm3 (0.0-2.0) 05/06/18 06:00 Absolute Neuts (auto) 2.32 (1.4-6.5) 05/06/18 06:00 Neutrophils % (Manual) 83 % (50.0-70.0) H 05/04/18 17:07 Band Neutrophils % 1 % (0-2) 05/04/18 17:07 Lymphocytes % (Manual) 7 % (22.0-35.0) L 05/04/18 17:07 Atypical Lymphs % 1 % (0.0-0.0) H 05/04/18 17:07 Monocytes % (Manual) 7 % (1.0-6.0) H 05/04/18 17:07 Eosinophils % (Manual) 1 % (0.0-3.0) 05/04/18 17:07 Toxic Granulation 3+ 05/04/18 17:07 Platelet Evaluation Normal (NORMAL) 05/04/18 17:07 Hypochromasia 2+ 05/04/18 17:07 Rouleaux 2+ 05/04/18 17:07 PT 13.4 SECONDS (9.4-12.5) H 05/04/18 17:07 INR 1.21 05/04/18 17:07 APTT 32.1 Seconds (26.9-38.3) 05/04/18 17:07 pO2 22 mm/Hg (30-55) L 05/04/18 05:33 VBG pH 7.39 (7.32-7.43) 05/04/18 05:33 VBG pCO2 38.0 (40-60) L 05/04/18 05:33 VBG HCO3 23.0 mmol/l (21-28) 05/04/18 05:33 VBG Total CO2 24.2 mmol.L (22-28) 05/04/18 05:33 VBG O2 Sat (Calc) 45.6 % (40-65) 05/04/18 05:33 VBG Base Excess -1.7 mmol/L (0.0-2.0) L 05/04/18 05:33 VBG Potassium 3.5 mmol/L (3.6-5.2) L 05/04/18 05:33 Sodium 134.0 mmol/L (132-148) 05/04/18 05:33 Chloride 103.0 mmol/L (98-107) 05/04/18 05:33 Glucose 98 mg/dl (75-110) 05/04/18 05:33 Lactate 1.6 mmol/L (0.7-2.1) 05/04/18 05:33 FiO2 32.0 % 05/04/18 05:33 Crit Value Called To Rn 05/04/18 05:33 Crit Value Called By Rt 05/04/18 05:33 Blood Gas Notified Time 1742 05/04/18 05:33 Sodium 138 mmol/L (132-148) 05/06/18 06:00 Potassium 3.4 mmol/L (3.6-5.0) L 05/06/18 06:00 Chloride 108 mmol/L (98-107) H 05/06/18 06:00 Carbon Dioxide 24 mmol/L (21-33) 05/06/18 06:00 Anion Gap 9 (10-20) L 05/06/18 06:00 BUN 18 mg/dL (7-21) 05/06/18 06:00 Creatinine 0.8 mg/dl (0.8-1.5) 05/06/18 06:00 Est GFR ( Amer) > 60 05/06/18 06:00 Est GFR (Non-Af Amer) > 60 05/06/18 06:00 Random Glucose 90 mg/dL (70-110) 05/06/18 06:00 Calcium 8.6 mg/dL (8.4-10.5) 05/06/18 06:00 Phosphorus 3.8 mg/dL (2.5-4.5) 05/06/18 06:00 Magnesium 2.0 mg/dL (1.7-2.2) 05/06/18 06:00 Total Bilirubin 0.4 mg/dL (0.2-1.3) 05/06/18 06:00 AST 54 U/L (17-59) 05/06/18 06:00 ALT 43 U/L (7-56) 05/06/18 06:00 Alkaline Phosphatase 94 U/L (38-126) 05/06/18 06:00 Total Creatine Kinase 70 U/L (35-230) 05/04/18 17:07 Troponin I 0.02 ng/mL 05/04/18 17:07 NT-Pro-B Natriuret Pep 701 pg/mL (0-450) H 05/04/18 17:07 Total Protein 6.6 g/dL (5.8-8.3) 05/06/18 06:00 Albumin 3.1 g/dL (3.0-4.8) 05/06/18 06:00 Globulin 3.5 gm/dL 05/06/18 06:00 Albumin/Globulin Ratio 0.9 (1.1-1.8) L 05/06/18 06:00 Procalcitonin 2.01 NG/ML (0.19-0.49) H 05/04/18 21:45 Venous Blood Potassium 3.5 mmol/L (3.6-5.2) L 05/04/18 05:33 Influenza Typ A,B (EIA) Negative for flu a/b (NEGATIVE) 05/04/18 18:30 Attending/Attestation - Attestation I have personally seen and examined this patient.: Yes I have fully participated in the care of the patient.: Yes I have reviewed all pertinent clinical information, including history, physical exam and plan: Yes Notes (Text): 05/06/18 17:22 78 year old male with past medical history of COPD, hypertension, prostate cancer, and AAA repair who presented with fever and shortness of breath secondary to have multifocal (RUL/RLL/LLL) pneumonia as seen on CXR. He initially has fever with elevated procalcitonin. He was started on iv antibiotics with improvement of symptoms. He has been afebrile >24 hrs. Cultures are negative to date. He is ambulating without shortness of breath. Patient is discharged home on po antibiotics. Follow up with pmd. Shy Fofana MD Hospitalist.
== END 2018-05-06 18:40 | disposition home or self-care (01) | DRG 194 ==
LOC: ED 16:26 → ERH 18:32 → 2RSO 20:41 → OBSVTOIN 05-05 14:41 → 2RSO 05-05 23:53
PROVIDERS: ADMIT Hospitalist; ATTEND Internal Medicine
PROC: 3E0F7GC Introduction of Other Therapeutic Substance into Respiratory Tract, Via Natural or Artificial Opening (ICD-10-PCS; principal; 2018-05-05)
DX: J18.1 Lobar pneumonia, unspecified organism (principal); J44.0 Chronic obstructive pulmonary disease with (acute) lower respiratory infection; I10 Essential (primary) hypertension; I73.9 Peripheral vascular disease, unspecified; Z85.46 Personal history of malignant neoplasm of prostate; Z86.79 Personal history of other diseases of the circulatory system; Z87.891 Personal history of nicotine dependence